=== PATIENT | male | born 1970 | race Caucasian/White ===

== ENCOUNTER 2017-05-11 00:51 | Inpatient (IN) | payer SELFPAY ==
[~2017-05-11] VITALS: Ht 182.9 cm; Wt 107.7 kg
[2017-05-11] VITALS (12 sets, daily range): BP systolic 127–172; BP diastolic 77–118
[2017-05-11] MEDS ORDERED: CONTRAST GIVEN MC PRN (01:30)
--- NOTE | 2017-05-11 01:57 | PHYS DOC ---
Past Medical History Past Medical History: Hypertension Past Surgical History: No Surgical History Alcohol Use: None Drug Use: Marijuana Adult General Chief Complaint Chief Complaint: GROIN PAIN HPI HPI Patient is a 47 year old M who presents with left groin hernia that is present for the past month however the past week it hasn't increased pain. Patient also states she does not just feel well in general and every time he coughs the pain in the left groin hurts. Patient denies any fevers. Patient denies any nausea/ vomiting/diarrhea. Patient denies any chest pain or shortness of breath. Patient has no other complaints. Pertinent exam findings: Reducible left inguinal hernia, abdomen soft nontender bowel sounds heard all 4 quadrants ED course: Patient was seen and evaluated CBC, CMP, lipase, UA, CT scan of the pelvis with contrast were ordered 0404: Patient was updated and reevaluated blood pressure is 203/130 and the patient is diaphoretic therefore will admit for hypertensive emergency abdominal pain Pertinent results: 0244: Sinus tach rate of 110 no STEMI CBC unremarkable CMP unremarkable CT scan of abdomen and pelvis IMPRESSION: 1. Intrarenal collecting system calculi identified in the right kidney. No hydronephrosis. 2. No evidence of left inguinal hernia. Tiny fat-containing right inguinal hernia. 3. 8 mm solid nodule right lower lobe of the lung. Follow-up nonemergent CT chest per Fleischner Society guidelines in 6-12 months. 4. Nonspecific mildly prominent retroperitoneal lymph nodes. MDM: After reviewing the chart, CC/HPI/PMH, physical exam, [lab results], [ radiological results], I do not put the patient has a intra-abdominal emergency warranting emergent surgical intervention. On reevaluation the patient is diaphoretic and states he just does not feel right however his blood pressures should be elevated therefore will admit for hypertensive emergency on a nicardipine drip to the ICU. Review of Systems Review of Systems GEN: Denies fevers, chills, sweats HEENT: Denies blurred vision, sore throat CV: Denies chest pain RESP: Denies shortness of air, cough GI: Left groin pain NEURO: Denies confusion, dizziness MSK: Denies weakness, joint pain/swelling Current Medications Current Medications Current Medications Medications (Trade) Dose Ordered Sig/Jose Start Time Stop Time Status Last Admin Dose Admin Clonidine HCl (Catapres) 0.2 mg 1X ONCE 6/11/17 02:00 05/11/17 02:01 DC 05/11/17 01:58 0.2 MG Info (Do NOT chart on this entry -- for MONITORING) 1 each PRN DAILY PRN 05/11/17 01:30 05/13/17 01:29 Iohexol (Omnipaque 300 Mg/ml) 75 ml 1X ONCE 05/11/17 02:00 05/11/17 02:01 DC Nicardipine HCl 50 mg/Sodium Chloride 270 ml @ 0 mls/hr CONT PRN 05/11/17 04:15 UNV Allergies Allergies Allergies Coded Allergies Type Severity Reaction Last Updated Verified No Known Drug Allergies 05/11/17 No Physical Exam Physical Exam GEN.: No apparent distress. Alert and oriented. HEENT: Head is normocephalic, atraumatic NECK: Supple. LUNGS: CTAB. HEART: RRR, S1, S2 present. Peripheral pulses intact ABDOMEN: Soft, nontender. Positive bowel sounds. Left reducible inguinal hernia, no signs of strength elation or incarceration EXTREMITIES: Without any cyanosis. NEUROLOGIC: Normal speech, normal tone PSYCHIATRIC: Normal affect, normal mood. SKIN: No ulcerations Current Patient Data Vital Signs Vital Signs Date Time Temp Pulse Resp B/P (MAP) Pulse Ox O2 Delivery O2 Flow Rate FiO2 05/11/17 03:45 102 204/131 (155) 96 Room Air 05/11/17 01:00 98.1 16 98.1 Lab Values Laboratory Tests Test 05/11/17 01:49 05/11/17 02:05 05/11/17 03:34 White Blood Count 8.5 x10^3/uL (4.0-11.0) Red Blood Count 5.37 x10^6/uL (4.30-5.70) Hemoglobin 16.5 g/dL (13.0-17.5) Hematocrit 48.1 % (39.0-53.0) Mean Corpuscular Volume 90 fL (79-100) Mean Corpuscular Hemoglobin 31 pg (25-35) Mean Corpuscular Hemoglobin Concent 34 g/dL (31-37) Red Cell Distribution Width 13.5 % (11.5-14.5) Platelet Count 236 x10^3/uL (140-400) Neutrophils (%) (Auto) 66 % (31-73) Lymphocytes (%) (Auto) 23 % (24-48) L Monocytes (%) (Auto) 7 % (0-9) Eosinophils (%) (Auto) 3 % (0-3) Basophils (%) (Auto) 1 % (0-3) Neutrophils # (Auto) 5.6 x10^3uL (1.8-7.7) Lymphocytes # (Auto) 2.0 x10^3/uL (1.0-4.8) Monocytes # (Auto) 0.6 x10^3/uL (0.0-1.1) Eosinophils # (Auto) 0.3 x10^3/uL (0.0-0.7) Basophils # (Auto) 0.1 x10^3/uL (0.0-0.2) Sodium Level 138 mmol/L (136-145) Potassium Level 3.9 mmol/L (3.5-5.1) Chloride Level 102 mmol/L (98-107) Carbon Dioxide Level 31 mmol/L (21-32) Anion Gap 5 (6-14) L Blood Urea Nitrogen 11 mg/dL (8-26) Creatinine 1.1 mg/dL (0.7-1.3) Estimated GFR (Cockcroft-Gault) 72.4 BUN/Creatinine Ratio 10 (6-20) Glucose Level 103 mg/dL (70-99) H Calcium Level 8.8 mg/dL (8.5-10.1) Total Bilirubin 0.5 mg/dL (0.2-1.0) Aspartate Amino Transferase (AST) 34 U/L (15-37) Alanine Aminotransferase (ALT) 37 U/L (16-63) Alkaline Phosphatase 73 U/L (46-116) Total Protein 7.6 g/dL (6.4-8.2) Albumin 3.8 g/dL (3.4-5.0) Albumin/Globulin Ratio 1.0 (1.0-1.7) Lipase 339 U/L (73-393) Lactic Acid Level 1.8 mmol/L (0.4-2.0) Urine Collection Type Unknown Urine Color Yellow Urine Clarity Clear Urine pH 6.0 Urine Specific [place] 1.015 Urine Protein >=300 mg/dL (NEG-TRACE) Urine Glucose (UA) Negative mg/dL (NEG) Urine Ketones (Stick) Negative mg/dL (NEG) Urine Blood Negative (NEG) Urine Nitrite Negative (NEG) Urine Bilirubin Negative (NEG) Urine Urobilinogen Dipstick 0.2 mg/dL (0.2 mg/dL) Urine Leukocyte Esterase Negative (NEG) Urine RBC Occ /HPF (0-2) Urine WBC Occ /HPF (0-4) Urine Squamous Epithelial Cells None /LPF Urine Bacteria 0 /HPF (0-FEW) Urine Mucus Slight /LPF Urine Sperm Present /HPF Laboratory Tests 05/11/17 01:49 Laboratory Tests 05/11/17 01:49 EKG EKG 0244: Sinus tach rate of 110 no STEMI[] Radiology/Procedures Radiology/Procedures CT the abdomen and pelvis: IMPRESSION: 1. Intrarenal collecting system calculi identified in the right kidney. No hydronephrosis. 2. No evidence of left inguinal hernia. Tiny fat-containing right inguinal hernia. 3. 8 mm solid nodule right lower lobe of the lung. Follow-up nonemergent CT chest per Fleischner Society guidelines in 6-12 months. 4. Nonspecific mildly prominent retroperitoneal lymph nodes.[] Course & Med Decision Making Course & Med Decision Making Pertinent Labs and Imaging studies reviewed. (See chart for details) Critical care time was 35 minutes exclusive of procedures. [] Dragon Disclaimer Dragon Disclaimer This electronic medical record was generated, in whole or in part, using a voice recognition dictation system. Departure Departure Impression: Primary Impression: Hypertensive emergency Additional Impression: Abdominal pain Disposition: 09 ADMITTED INPATIENT Admitting Physician: Obi Eason Condition: STABLE Problem Qualifiers Additional Impression: Abdominal pain Abdominal location: unspecified location Qualified Codes: R10.9 - Unspecified abdominal pain NINO BAUTISTA DO May 11, 2017 01:57
[2017-05-11 01:58] LABS: BASO # 0.1 x10^3/uL (0.0-0.2); BASO % 1 % (0-3); EOS % 3 % (0-3); HEMATOCRIT 48.1 % (39.0-53.0); HEMOGLOBIN 16.5 g/dL (13.0-17.5); LYMPH % 23 % (24-48); MEAN CORPUSCULAR HEMOGLOBIN 31 pg (25-35); MEAN CORPUSCULAR HGB CONC 34 g/dL (31-37); MEAN CORPUSCULAR VOLUME 90 fL (79-100); MONO % 7 % (0-9); NEUT % 66 % (31-73); PLATELET COUNT 236 x10^3/uL (140-400); RED BLOOD COUNT 5.37 x10^6/uL (4.30-5.70); RED CELL DISTRIBUTION WIDTH 13.5 % (11.5-14.5); WHITE BLOOD COUNT 8.5 x10^3/uL (4.0-11.0)
[2017-05-11] MEDS ORDERED: cloNIDine HCL 0.1 MG TABLET PO ONE (02:00)
[2017-05-11] MEDS ORDERED: IOHEXOL 300 MG/ML 75 ML VIAL IV ONE (02:00)
[2017-05-11 02:07] LABS: CALCIUM 8.8 mg/dL (8.5-10.1); CREATININE 1.1 mg/dL (0.7-1.3); GFR 72.4; POTASSIUM 3.9 mmol/L (3.5-5.1)
[2017-05-11 02:13] LABS: ALBUMIN 3.8 g/dL (3.4-5.0); TOTAL BILIRUBIN 0.5 mg/dL (0.2-1.0); TOTAL PROTEIN 7.6 g/dL (6.4-8.2)
--- NOTE | 2017-05-11 03:32 | RAD ---
Examination: CT of the abdomen and pelvis without contrast HISTORY: History of left inguinal hernia, pain COMPARISON: None TECHNIQUE: Axial CT images of the abdomen and pelvis were performed without contrast. Coronal and sagittal reformats were performed. Exposure: One or more of the following individualized dose reduction techniques were utilized for this examination: 1. Automated exposure control 2. Adjustment of the mA and/or kV according to patient size 3. Use of iterative reconstruction technique Findings: There is a 8 mm nodule identified in the right lower lobe of lung. Minimal right basilar lung atelectasis. No evidence of free air identified in the abdomen. The evaluation of the solid viscera limited lack of IV contrast. Evaluation of the bolus into the lack of oral contrast. The visualized liver, spleen, adrenals grossly appears unremarkable. The gallbladder is mildly distended. The stomach is mildly distended. The visualized pancreas grossly appears unremarkable. Small bowel is nondilated. The appendix is normal. Feces and gas in the colon. The urinary bladder is mildly distended. No evidence of left inguinal hernia defect. Tiny small fat-containing right inguinal hernia. The caliber of the aorta appears unremarkable. Few prominent retroperitoneal lymph nodes are identified with the largest measuring 2 cm. There is a 8 mm calcification identified in the right kidney. There is a small 4 mm calculus identified in the right kidney likely calculi. No evidence of hydronephrosis. No evidence of lytic bony destructive lesion. Mild degenerative changes lumbar spine. IMPRESSION: 1. Intrarenal collecting system calculi identified in the right kidney. No hydronephrosis. 2. No evidence of left inguinal hernia. Tiny fat-containing right inguinal hernia. 3. 8 mm solid nodule right lower lobe of the lung. Follow-up nonemergent CT chest per Fleischner Society guidelines in 6-12 months. 4. Nonspecific mildly prominent retroperitoneal lymph nodes. Electronically signed by: Florencio Pizano MD (05/11/2017 3:29 AM)
[2017-05-11 03:43] LABS: BILIRUBIN,URINE NEGATIVE (NEG); GLUCOSE,URINE NEGATIVE (NEG); NITRITE,URINE NEGATIVE (NEG); PROTEIN,URINE >=300 mg/dL (NEG-TRACE); UROBILINOGEN,URINE 0.2 mg/dL (0.2 mg/dL)
--- NOTE | 2017-05-11 03:43 | ACF ---
Admission Forms Criteria HYPERTENSION Clinical Indications for Admission to Inpatient Care ( Place "X" for any and all applicable criteria): Admission is indicated for 1 or more of the following(1)(2)(3)(4)(5)(6)(7)(8)(9) (10): [ ]I. Hypertensive emergency, with evidence of acute and progressing target organ disease as indicated by 1 or more of the following: [ ]a) Hypertensive encephalopathy (eg, confusion, altered mental status) [ ]b) Cerebral infarction [ ]c) Intracranial hemorrhage [ ]d) Myocardial ischemia or infarction [ ]e) Heart failure (eg. Pulmonary edema) [ ]f) Aortic dissection [ ]g) Increased creatinine (new) with reduction of more than 50% in estimated glomerular filtration rate from baseline [ ]h) Seizure [ ]i) Papilledema [ ]j) Retinal hemorrhage [ ]k) Microangiopathic hemolytic anemia [ ]l) Other significant finding secondary to hypertension [ ]II. Adrenergic or sympathomimetic crisis (eg, severe hypertension due to pheochromocytoma crisis, cocaine or amphetamine intoxication, or clonidine withdrawal) [X]III. Severe hypertension (SBP greater than 180 mmHg or DBP greater than 110 mmHg or greater than the 95th percentile for age, gender, and height in pediatric patients) that cannot be controlled (eg, to SBP less than 160 mmHg and DBP less than 100 mmHg in adults) by treatment with oral medication in emergency department or observation care Extended stay beyond goal length of stay may be needed for(11)(12)(13): [ ]a) Persistent hypertensive encephalopathy [ ]b) Continuation of pulmonary edema [ ]c) Recurring or persistent severe hypertension [ ]d) Target organ damage (eg, angina, stroke, aortic dissection) The original [employer] content created by [employer] has been revised. The portions of the content which have been revised are identified through the use of italic text, and [email or web address] has neither reviewed nor approved the modified material. All other unmodified content is copyright [employer]. Please see references footnoted in the original [employer] edition 2014 Admission Criteria Met?: Yes ALCIDES TAYLOR May 11, 2017 03:43
[2017-05-11 03:54] LABS: BACTERIA,URINE 0 /HPF (0-FEW); RBC,URINE OCC /HPF (0-2); WBC,URINE OCC /HPF (0-4)
[2017-05-11 03:55] LABS: SPERM,URINE PRESENT /HPF
[2017-05-11] MEDS ORDERED: ASPIRIN CHEWABLE 81 MG TABLET. PO ONE (05:00)
[2017-05-11] MEDS ORDERED: IV NORMAL SALINE 1000ML BAG 1,000 ML IV ONE (05:00)
[2017-05-11] MEDS ORDERED: MORPHINE SULFATE 4 MG/ML DISP.SYRIN. IV PRN (06:00)
[2017-05-11] MEDS ORDERED: ACETAMINOPHEN 325 MG TABLET. PO PRN (07:30)
[2017-05-11] MEDS ORDERED: ALBUTEROL SULFATE 2.5 MG/3 ML NEBU. NEB PRN (07:30)
[2017-05-11] MEDS ORDERED: ONDANSETRON PF 4 MG/2 ML VIAL. IV PRN (07:30)
--- NOTE | 2017-05-11 07:55 | RAD ---
Indication shortness of breath. A single view of the chest was obtained no prior imaging of the chest is available. There is mild generalized cardiomegaly. There is no gross congestive heart failure. No consolidated pneumonia is seen. Significant pleural fluid is not present and there is no pneumothorax. The visualized bony structures appear grossly intact. IMPRESSION: Mild cardiomegaly. No focal process seen in the chest
[2017-05-11] MEDS: METOPROLOL TART IMMED RELEASE 25 MG TABLET. PO SCH ×2 (08:26→20:52)
--- NOTE | 2017-05-11 09:52 | PDOC1 ---
History and Physical Current Problem List Problem List Problems Medical Problems: (1) Abdominal pain Status: Acute (2) Hypertensive emergency Status: Acute Current Medications Current Medications Current Medications Medications (Trade) Dose Ordered Sig/Jose Start Time Stop Time Status Last Admin Dose Admin Acetaminophen (Tylenol) 325 mg PRN Q6HRS PRN 05/11/17 07:30 Acetaminophen/ Hydrocodone Bitart (Lortab 5/325) 1 tab PRN Q6HRS PRN 05/11/17 07:30 Albuterol Sulfate (Ventolin Neb Soln) 2.5 mg PRN Q4HRS PRN 05/11/17 07:30 Aspirin (Children'S Aspirin) 324 mg 1X ONCE 05/11/17 05:00 05/11/17 05:01 DC 05/11/17 04:46 324 MG Clonidine HCl (Catapres) 0.2 mg 1X ONCE 05/11/17 02:00 05/11/17 02:01 DC 05/11/17 01:58 0.2 MG Hydralazine HCl (Apresoline) 10 mg PRN Q4HRS PRN 05/11/17 07:30 Info (Do NOT chart on this entry -- for MONITORING) 1 each PRN DAILY PRN 05/11/17 01:30 05/13/17 01:29 Iohexol (Omnipaque 300 Mg/ml) 75 ml 1X ONCE 05/11/17 02:00 05/11/17 02:01 DC Metoprolol Tartrate (Lopressor) 25 mg BID 05/11/17 09:00 05/11/17 08:26 25 MG Morphine Sulfate 4 mg PRN Q2HR PRN 05/11/17 06:00 Nicardipine HCl 50 mg/Sodium Chloride 270 ml @ 0 mls/hr CONT PRN 05/11/17 04:15 05/11/17 04:22 12.5 MLS/HR Ondansetron HCl (Zofran) 4 mg PRN Q8HRS PRN 05/11/17 07:30 Sodium Chloride 1,000 ml @ 1,000 mls/hr 1X ONCE 05/11/17 05:00 05/11/17 05:59 DC 05/11/17 04:50 1,000 MLS/HR Allergies Allergies Allergies Coded Allergies Type Severity Reaction Last Updated Verified No Known Drug Allergies 05/11/17 No ROS Review of System CONSTITUTIONAL: No fever or chills EYES: No recent changes SKIN: No rash or itching CARDIOVASCULAR: No chest pain, syncope, palpitations, or edema RESPIRATORY: No SOB or cough GASTROINTESTINAL: abdominal pain NEUROLOGICAL: No headaches or weakness ENDOCRINE: No cold or heat intolerance GENITOURINARY: No urgency or frequency of urination MUSCULOSKELETAL: No back pain or joint pain LYMPHATICS: No enlarged lymph nodes PSYCHIATRIC: No anxiety or depression Physical Exam Physical Exam GEN.: No apparent distress. Alert and oriented. sleepy, didn't sleep last night. HEENT: Head is normocephalic, atraumatic NECK: Supple. no JVD LUNGS: Clear to auscultation. normal airflow. HEART: RRR, S1, S2 present. Peripheral pulses intact ABDOMEN: Soft, nontender. Positive bowel sounds. EXTREMITIES: Without any cyanosis. NEUROLOGIC: Normal speech, normal tone PSYCHIATRIC: Normal affect, normal mood. SKIN: No ulcerations Vitals Vitals Vital Signs Date Time Temp Pulse Resp B/P (MAP) Pulse Ox O2 Delivery O2 Flow Rate FiO2 05/11/17 09:00 76 18 127/78 (94) 95 Room Air 05/11/17 07:00 98.4 98.4 Labs Labs Laboratory Tests Test 05/11/17 01:49 05/11/17 02:05 05/11/17 03:34 White Blood Count 8.5 x10^3/uL (4.0-11.0) Red Blood Count 5.37 x10^6/uL (4.30-5.70) Hemoglobin 16.5 g/dL (13.0-17.5) Hematocrit 48.1 % (39.0-53.0) Mean Corpuscular Volume 90 fL (79-100) Mean Corpuscular Hemoglobin 31 pg (25-35) Mean Corpuscular Hemoglobin Concent 34 g/dL (31-37) Red Cell Distribution Width 13.5 % (11.5-14.5) Platelet Count 236 x10^3/uL (140-400) Neutrophils (%) (Auto) 66 % (31-73) Lymphocytes (%) (Auto) 23 % (24-48) Monocytes (%) (Auto) 7 % (0-9) Eosinophils (%) (Auto) 3 % (0-3) Basophils (%) (Auto) 1 % (0-3) Neutrophils # (Auto) 5.6 x10^3uL (1.8-7.7) Lymphocytes # (Auto) 2.0 x10^3/uL (1.0-4.8) Monocytes # (Auto) 0.6 x10^3/uL (0.0-1.1) Eosinophils # (Auto) 0.3 x10^3/uL (0.0-0.7) Basophils # (Auto) 0.1 x10^3/uL (0.0-0.2) Sodium Level 138 mmol/L (136-145) Potassium Level 3.9 mmol/L (3.5-5.1) Chloride Level 102 mmol/L (98-107) Carbon Dioxide Level 31 mmol/L (21-32) Anion Gap 5 (6-14) Blood Urea Nitrogen 11 mg/dL (8-26) Creatinine 1.1 mg/dL (0.7-1.3) Estimated GFR (Cockcroft-Gault) 72.4 BUN/Creatinine Ratio 10 (6-20) Glucose Level 103 mg/dL (70-99) Calcium Level 8.8 mg/dL (8.5-10.1) Total Bilirubin 0.5 mg/dL (0.2-1.0) Aspartate Amino Transf (AST/SGOT) 34 U/L (15-37) Alanine Aminotransferase (ALT/SGPT) 37 U/L (16-63) Alkaline Phosphatase 73 U/L (46-116) Troponin I Quantitative 0.102 ng/mL (0.000-0.055) Total Protein 7.6 g/dL (6.4-8.2) Albumin 3.8 g/dL (3.4-5.0) Albumin/Globulin Ratio 1.0 (1.0-1.7) Lipase 339 U/L (73-393) Lactic Acid Level 1.8 mmol/L (0.4-2.0) Urine Collection Type Unknown Urine Color Yellow Urine Clarity Clear Urine pH 6.0 Urine Specific [place] 1.015 Urine Protein >=300 mg/dL (NEG-TRACE) Urine Glucose (UA) Negative mg/dL (NEG) Urine Ketones (Stick) Negative mg/dL (NEG) Urine Blood Negative (NEG) Urine Nitrite Negative (NEG) Urine Bilirubin Negative (NEG) Urine Urobilinogen Dipstick 0.2 mg/dL (0.2 mg/dL) Urine Leukocyte Esterase Negative (NEG) Urine RBC Occ /HPF (0-2) Urine WBC Occ /HPF (0-4) Urine Squamous Epithelial Cells None /LPF Urine Bacteria 0 /HPF (0-FEW) Urine Mucus Slight /LPF Urine Sperm Present /HPF Laboratory Tests Test 05/11/17 01:49 05/11/17 02:05 05/11/17 03:34 White Blood Count 8.5 x10^3/uL (4.0-11.0) Red Blood Count 5.37 x10^6/uL (4.30-5.70) Hemoglobin 16.5 g/dL (13.0-17.5) Hematocrit 48.1 % (39.0-53.0) Mean Corpuscular Volume 90 fL (79-100) Mean Corpuscular Hemoglobin 31 pg (25-35) Mean Corpuscular Hemoglobin Concent 34 g/dL (31-37) Red Cell Distribution Width 13.5 % (11.5-14.5) Platelet Count 236 x10^3/uL (140-400) Neutrophils (%) (Auto) 66 % (31-73) Lymphocytes (%) (Auto) 23 % (24-48) Monocytes (%) (Auto) 7 % (0-9) Eosinophils (%) (Auto) 3 % (0-3) Basophils (%) (Auto) 1 % (0-3) Neutrophils # (Auto) 5.6 x10^3uL (1.8-7.7) Lymphocytes # (Auto) 2.0 x10^3/uL (1.0-4.8) Monocytes # (Auto) 0.6 x10^3/uL (0.0-1.1) Eosinophils # (Auto) 0.3 x10^3/uL (0.0-0.7) Basophils # (Auto) 0.1 x10^3/uL (0.0-0.2) Sodium Level 138 mmol/L (136-145) Potassium Level 3.9 mmol/L (3.5-5.1) Chloride Level 102 mmol/L (98-107) Carbon Dioxide Level 31 mmol/L (21-32) Anion Gap 5 (6-14) Blood Urea Nitrogen 11 mg/dL (8-26) Creatinine 1.1 mg/dL (0.7-1.3) Estimated GFR (Cockcroft-Gault) 72.4 BUN/Creatinine Ratio 10 (6-20) Glucose Level 103 mg/dL (70-99) Calcium Level 8.8 mg/dL (8.5-10.1) Total Bilirubin 0.5 mg/dL (0.2-1.0) Aspartate Amino Transf (AST/SGOT) 34 U/L (15-37) Alanine Aminotransferase (ALT/SGPT) 37 U/L (16-63) Alkaline Phosphatase 73 U/L (46-116) Troponin I Quantitative 0.102 ng/mL (0.000-0.055) Total Protein 7.6 g/dL (6.4-8.2) Albumin 3.8 g/dL (3.4-5.0) Albumin/Globulin Ratio 1.0 (1.0-1.7) Lipase 339 U/L (73-393) Lactic Acid Level 1.8 mmol/L (0.4-2.0) Urine Collection Type Unknown Urine Color Yellow Urine Clarity Clear Urine pH 6.0 Urine Specific [place] 1.015 Urine Protein >=300 mg/dL (NEG-TRACE) Urine Glucose (UA) Negative mg/dL (NEG) Urine Ketones (Stick) Negative mg/dL (NEG) Urine Blood Negative (NEG) Urine Nitrite Negative (NEG) Urine Bilirubin Negative (NEG) Urine Urobilinogen Dipstick 0.2 mg/dL (0.2 mg/dL) Urine Leukocyte Esterase Negative (NEG) Urine RBC Occ /HPF (0-2) Urine WBC Occ /HPF (0-4) Urine Squamous Epithelial Cells None /LPF Urine Bacteria 0 /HPF (0-FEW) Urine Mucus Slight /LPF Urine Sperm Present /HPF VTE Prophylaxis Ordered VTE Prophylaxis Devices: Yes VTE Pharmacological Prophylaxi: No BELKIS DIAMOND MD May 11, 2017 09:52
[2017-05-11] MEDS ORDERED: hydroCHLOROthiazide 12.5 MG CAPSULE PO SCH (10:00)
--- NOTE | 2017-05-11 11:36 | RAD ---
Indication uncontrolled hypertension. Ultrasound was performed targeted to the renal vasculature. Grayscale color and Doppler imaging was performed. The visualized abdominal aorta appear normal. Only the proximal abdominal aorta was seen. The mid and distal abdominal aorta were obscured by gas. Right kidney measures 14.2 x 5.8 cm and the left 13.6 x 5.4 cm. The kidneys appear morphologically normal. The measured velocities associated with the main renal arteries bilaterally appear normal. Ratio values relative to the aorta are also normal. Resistive indices are normal. The renal veins appeared patent. The urinary bladder was incompletely distended but grossly normal IMPRESSION: Normal morphologic appearance of the kidneys. No evidence of high-grade renal artery stenosis seen associated with the main renal arteries bilaterally.
--- NOTE | 2017-05-11 12:38 | EKG ---
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
--- NOTE | 2017-05-11 12:38 | EKG ---
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
--- NOTE | 2017-05-11 14:23 | PDOC2 ---
CONSULT Date of Consult Date of Consult DATE: 05/11/17 TIME: 14:17 Reason for Consult Reason for Consult: Accelerated hypertension. Referring Physician Referring Physician: Dr. Eason Identification/Chief Complaint Chief Complaint Left groin pain Source Source: Patient History of Present Illness Reason for Visit: The patient is a 47-year-old male was admitted through the emergency room for left groin pain. Initial workup showed a CT abdominal scan that showed no left inguinal hernia and no acute changes. As the patient was being evaluated for his abdominal pain he was FOUND to be significantly hypertensive with a blood pressure systolic of 204 or greater. Patient also appeared diaphoretic. EKG showed a sinus tachycardia with no acute ST segment changes. Troponin initially was minimally elevated at 0.102. Patient was treated with IV medications for his hypertension overnight and today is feeling much better. His pain has significantly improved. Systolic pressure is now 150. He denies chest pain, increasing shortness of breath. His diaphoresis has resolved. Past Medical History Cardiovascular: HTN Past Surgical History Past Surgical History: No pertinent history Family History Family History: Hypertension Social History No Current Problem List Problem List Problems Medical Problems: (1) Abdominal pain Status: Acute (2) Hypertensive emergency Status: Acute Current Medications Current Medications Current Medications Iohexol (Omnipaque 300 Mg/ml) 75 ml 1X ONCE IV ; Start 05/11/17 at 02:00; Stop 05/11/17 at 02:01; Status DC Info (Do NOT chart on this entry -- for MONITORING) 1 each PRN DAILY PRN MC SEE COMMENTS; Start 05/11/17 at 01:30; Stop 05/13/17 at 01:29 Clonidine HCl (Catapres) 0.2 mg 1X ONCE PO Last administered on 05/11/17 01: 58; Start 05/11/17 at 02:00; Stop 05/11/17 at 02:01; Status DC Nicardipine HCl 50 mg/Sodium Chloride 270 ml @ 0 mls/hr CONT PRN IV SEE I/O RECORD Last administered on 05/11/17 04:22; Start 05/11/17 at 04:15 Aspirin (Children'S Aspirin) 324 mg 1X ONCE PO Last administered on 05/11/17 04:46; Start 05/11/17 at 05:00; Stop 05/11/17 at 05:01; Status DC Sodium Chloride 1,000 ml @ 1,000 mls/hr 1X ONCE IV Last administered on 04:50; Start 05/11/17 at 05:00; Stop 05/11/17 at 05:59; Status DC Morphine Sulfate 4 mg PRN Q2HR PRN IV SEVERE PAIN; Start 05/11/17 at 06:00 Metoprolol Tartrate (Lopressor) 25 mg BID PO Last administered on 05/11/17 08: 26; Start 05/11/17 at 09:00 Acetaminophen (Tylenol) 325 mg PRN Q6HRS PRN PO MILD PAIN / TEMP Last administered on 05/11/17 11:23; Start 05/11/17 at 07:30 Acetaminophen/ Hydrocodone Bitart (Lortab 5/325) 1 tab PRN Q6HRS PRN PO MODERATE TO SEVERE PAIN; Start 05/11/17 at 07:30 Hydralazine HCl (Apresoline) 10 mg PRN Q4HRS PRN IVP ELEVATED BP, SEE COMMENTS ; Start 05/11/17 at 07:30 Ondansetron HCl (Zofran) 4 mg PRN Q8HRS PRN IV NAUSEA/VOMITING; Start 05/11/17 at 07:30 Albuterol Sulfate (Ventolin Neb Soln) 2.5 mg PRN Q4HRS PRN NEB SHORTNESS OF BREATH; Start 05/11/17 at 07:30 Hydrochlorothiazide (Microzide) 12.5 mg DAILY PO Last administered on 09:55; Start 05/11/17 at 10:00 Allergies Allergies: Coded Allergies: No Known Drug Allergies (Unverified , 05/11/17) ROS Genitourinary: YES Other (groin pain) Physical Exam General: Cooperative, No acute distress Lungs: Clear to auscultation Heart: Regular rate Abdomen: Other (slight tenderness in the lower abdomen) Vitals VITALS Vital Signs Date Time Temp Pulse Resp B/P (MAP) Pulse Ox O2 Delivery O2 Flow Rate FiO2 05/11/17 13:01 98 Nasal Cannula 05/11/17 11:45 97.3 77 20 138/95 (109) 97.3 Labs Labs Laboratory Tests Test 05/11/17 01:49 05/11/17 02:05 05/11/17 03:34 05/11/17 12:45 White Blood Count 8.5 x10^3/uL (4.0-11.0) Red Blood Count 5.37 x10^6/uL (4.30-5.70) Hemoglobin 16.5 g/dL (13.0-17.5) Hematocrit 48.1 % (39.0-53.0) Mean Corpuscular Volume 90 fL (79-100) Mean Corpuscular Hemoglobin 31 pg (25-35) Mean Corpuscular Hemoglobin Concent 34 g/dL (31-37) Red Cell Distribution Width 13.5 % (11.5-14.5) Platelet Count 236 x10^3/uL (140-400) Neutrophils (%) (Auto) 66 % (31-73) Lymphocytes (%) (Auto) 23 % (24-48) Monocytes (%) (Auto) 7 % (0-9) Eosinophils (%) (Auto) 3 % (0-3) Basophils (%) (Auto) 1 % (0-3) Neutrophils # (Auto) 5.6 x10^3uL (1.8-7.7) Lymphocytes # (Auto) 2.0 x10^3/uL (1.0-4.8) Monocytes # (Auto) 0.6 x10^3/uL (0.0-1.1) Eosinophils # (Auto) 0.3 x10^3/uL (0.0-0.7) Basophils # (Auto) 0.1 x10^3/uL (0.0-0.2) Sodium Level 138 mmol/L (136-145) Potassium Level 3.9 mmol/L (3.5-5.1) Chloride Level 102 mmol/L (98-107) Carbon Dioxide Level 31 mmol/L (21-32) Anion Gap 5 (6-14) Blood Urea Nitrogen 11 mg/dL (8-26) Creatinine 1.1 mg/dL (0.7-1.3) Estimated GFR (Cockcroft-Gault) 72.4 BUN/Creatinine Ratio 10 (6-20) Glucose Level 103 mg/dL (70-99) Calcium Level 8.8 mg/dL (8.5-10.1) Total Bilirubin 0.5 mg/dL (0.2-1.0) Aspartate Amino Transf (AST/SGOT) 34 U/L (15-37) Alanine Aminotransferase (ALT/SGPT) 37 U/L (16-63) Alkaline Phosphatase 73 U/L (46-116) Troponin I Quantitative 0.102 ng/mL (0.000-0.055) 0.096 ng/mL (0.000-0.055) Total Protein 7.6 g/dL (6.4-8.2) Albumin 3.8 g/dL (3.4-5.0) Albumin/Globulin Ratio 1.0 (1.0-1.7) Lipase 339 U/L (73-393) Lactic Acid Level 1.8 mmol/L (0.4-2.0) Urine Collection Type Unknown Urine Color Yellow Urine Clarity Clear Urine pH 6.0 Urine Specific [place] 1.015 Urine Protein >=300 mg/dL (NEG-TRACE) Urine Glucose (UA) Negative mg/dL (NEG) Urine Ketones (Stick) Negative mg/dL (NEG) Urine Blood Negative (NEG) Urine Nitrite Negative (NEG) Urine Bilirubin Negative (NEG) Urine Urobilinogen Dipstick 0.2 mg/dL (0.2 mg/dL) Urine Leukocyte Esterase Negative (NEG) Urine RBC Occ /HPF (0-2) Urine WBC Occ /HPF (0-4) Urine Squamous Epithelial Cells None /LPF Urine Bacteria 0 /HPF (0-FEW) Urine Mucus Slight /LPF Urine Sperm Present /HPF Laboratory Tests Test 05/11/17 01:49 05/11/17 02:05 05/11/17 03:34 05/11/17 12:45 White Blood Count 8.5 x10^3/uL (4.0-11.0) Red Blood Count 5.37 x10^6/uL (4.30-5.70) Hemoglobin 16.5 g/dL (13.0-17.5) Hematocrit 48.1 % (39.0-53.0) Mean Corpuscular Volume 90 fL (79-100) Mean Corpuscular Hemoglobin 31 pg (25-35) Mean Corpuscular Hemoglobin Concent 34 g/dL (31-37) Red Cell Distribution Width 13.5 % (11.5-14.5) Platelet Count 236 x10^3/uL (140-400) Neutrophils (%) (Auto) 66 % (31-73) Lymphocytes (%) (Auto) 23 % (24-48) Monocytes (%) (Auto) 7 % (0-9) Eosinophils (%) (Auto) 3 % (0-3) Basophils (%) (Auto) 1 % (0-3) Neutrophils # (Auto) 5.6 x10^3uL (1.8-7.7) Lymphocytes # (Auto) 2.0 x10^3/uL (1.0-4.8) Monocytes # (Auto) 0.6 x10^3/uL (0.0-1.1) Eosinophils # (Auto) 0.3 x10^3/uL (0.0-0.7) Basophils # (Auto) 0.1 x10^3/uL (0.0-0.2) Sodium Level 138 mmol/L (136-145) Potassium Level 3.9 mmol/L (3.5-5.1) Chloride Level 102 mmol/L (98-107) Carbon Dioxide Level 31 mmol/L (21-32) Anion Gap 5 (6-14) Blood Urea Nitrogen 11 mg/dL (8-26) Creatinine 1.1 mg/dL (0.7-1.3) Estimated GFR (Cockcroft-Gault) 72.4 BUN/Creatinine Ratio 10 (6-20) Glucose Level 103 mg/dL (70-99) Calcium Level 8.8 mg/dL (8.5-10.1) Total Bilirubin 0.5 mg/dL (0.2-1.0) Aspartate Amino Transf (AST/SGOT) 34 U/L (15-37) Alanine Aminotransferase (ALT/SGPT) 37 U/L (16-63) Alkaline Phosphatase 73 U/L (46-116) Troponin I Quantitative 0.102 ng/mL (0.000-0.055) 0.096 ng/mL (0.000-0.055) Total Protein 7.6 g/dL (6.4-8.2) Albumin 3.8 g/dL (3.4-5.0) Albumin/Globulin Ratio 1.0 (1.0-1.7) Lipase 339 U/L (73-393) Lactic Acid Level 1.8 mmol/L (0.4-2.0) Urine Collection Type Unknown Urine Color Yellow Urine Clarity Clear Urine pH 6.0 Urine Specific [place] 1.015 Urine Protein >=300 mg/dL (NEG-TRACE) Urine Glucose (UA) Negative mg/dL (NEG) Urine Ketones (Stick) Negative mg/dL (NEG) Urine Blood Negative (NEG) Urine Nitrite Negative (NEG) Urine Bilirubin Negative (NEG) Urine Urobilinogen Dipstick 0.2 mg/dL (0.2 mg/dL) Urine Leukocyte Esterase Negative (NEG) Urine RBC Occ /HPF (0-2) Urine WBC Occ /HPF (0-4) Urine Squamous Epithelial Cells None /LPF Urine Bacteria 0 /HPF (0-FEW) Urine Mucus Slight /LPF Urine Sperm Present /HPF Images Images Chest x-ray with mild cardiomegaly. Renal ultrasound with no significant stenosis. Assessment/Plan Assessment/Plan 1. Groin and abdominal pain. Significantly improved. No acute changes on CT scans. Workup as above. 2. Accelerated hypertension. Significantly improved today. We will adjust oral medications. 3. Minimally elevated troponin at 0.102. Most consistent with demand ischemia from the patient's accelerated hypertension. At this time a complete rule out protocol. We'll check an echocardiogram today. If the patient is feeling better proceed with MPI testing tomorrow. Thank you for allowing us to participate in the care of the patient. ADRIANNE ARZATE MD May 11, 2017 14:23
[2017-05-11] MEDS: POLYETHYLENE GLYCOL 3350 17 GM PACKET. PO SCH (16:00)
[2017-05-11] MEDS: NICOTINE 21MG PATCH. TD SCH (16:12)
--- NOTE | 2017-05-11 17:17 | CARD ---
APPROVED REPORT EXAM: Two-dimensional and M-mode echocardiogram with Doppler and color Doppler. Other Information Quality : AverageHR: 76bpm INDICATION HTN Urgency 2D DIMENSIONS Left Atrium(2D)6.0 (1.6-4.0cm)IVSd1.1 (0.7-1.1cm) LVDd5.2 (3.9-5.9cm)LVOT Diameter2.6 (1.8-2.4cm) PWd1.1 (0.7-1.1cm)LVDs3.8 (2.5-4.0cm) FS (%) 26.4 %SV65.4 ml LVEF(%)51.3 (>50%) M-Mode DIMENSIONS Aortic Cusp Exc2.02 (1.5-2.0cm) Aortic Valve AoV Peak Aftab.93.1cm/sAoV VTI15.4cm AO Peak GR.3.5mmHgLVOT VTI 10.63cm AO Mean GR.3mmHg Mitral Valve MV E Slusvabf88.2cm/sMV E Peak Gr.2mmHg MV DECEL [id number] A [place]29.6cm/s MV E Mean Gr.1mmHgE/A Ratio2.6 MV A [id number] TDI Lateral E' P. V8.38cm/sMedial E' P. V4.00cm/s E/Lateral E'9.6E/Medial E'20.0 Pulmonary Valve PV Peak Kjdrwtjh08.6cm/s Tricuspid Valve TR P. Movgwirh535bx/sRAP [id number] TR Peak Gr.12goPoYZDQ54ccRa Pulmonary Vein S1 Qmapliph95.7cm/sS2 Lvngfxqz37.52cm/s D2 Nsnniwfp62.5cm/s LEFT VENTRICLE The left ventricle is normal size. There is borderline concentric left ventricular hypertrophy. The l eft ventricular systolic function is normal and the ejection fraction is mildly decreased on a global basis. LV ejection fraction is estimated at 45%. There is normal LV segmental wall motion. No left v entricle thrombus noted on this study. There is no ventricular septal defect visualized. There is no left ventricular aneurysm. There is no mass noted in the left ventricle. RIGHT VENTRICLE The right ventricle is normal size. There is normal right ventricular wall thickness. The right ventr icular systolic function is normal. ATRIA The left atrium is mildly dilated. The right atrium size is normal. The interatrial septum is intact with no evidence for an atrial septal defect or patent foramen ovale as noted on 2-D or Doppler imagi ng. AORTIC VALVE The aortic valve is normal in structure and function. Doppler and Color Flow revealed trace aortic re gurgitation. There is no significant aortic valvular stenosis. There is no aortic valvular vegetation . MITRAL VALVE The mitral valve is normal in structure and function. There is no evidence of mitral valve prolapse. There is no mitral valve stenosis. Doppler and Color-flow revealed trace mitral regurgitation. TRICUSPID VALVE The tricuspid valve is normal in structure and function. Doppler and Color Flow revealed mild to mode rate tricuspid regurgitation. There is no tricuspid valve prolapse or vegetation. There is no tricusp id valve stenosis. PULMONIC VALVE The pulmonary valve is normal in structure and function. Doppler and Color Flow revealed mild to mode rate pulmonic valvular regurgitation. There is no pulmonic valvular stenosis. GREAT VESSELS The aortic root is normal in size. The IVC is normal in size and collapses >50% with inspiration. PERICARDIAL EFFUSION There is no pleural effusion. There is no evidence of significant pericardial effusion. Critical Notification Critical Value: No <Conclusion> The left ventricle is normal size. The left ventricular systolic function is normal and the ejection fraction is mildly decreased on a g lobal basis. LV ejection fraction is estimated at 45%. There is borderline concentric left ventricular hypertrophy. There is no significant aortic valvular stenosis. Doppler and Color Flow revealed trace aortic regurgitation. Doppler and Color-flow revealed trace mitral regurgitation. Doppler and Color Flow revealed mild to moderate tricuspid regurgitation.
--- NOTE | 2017-05-11 22:51 | HP ---
ADMIT DATE: 05/11/2017 CHIEF COMPLAINT: Abdominal pain. HISTORY OF PRESENT ILLNESS: A 47-year-old, [place] male patient with prior history of hypertension, not taking any medications, presented to the ER with complaints of abdominal pain. He was evaluated for incarcerated hernia and he had CT of the abdomen that showed no acute process. He has reducible inguinal hernia, but no intestinal obstruction was seen. However, during his arrival, the patient had blood pressure systolic more than 203 with diastolic 130 with tachycardia. The patient was diaphoretic and requiring nicardipine drip for controlling his blood pressure. Also he had mild elevation of troponins and patient was admitted to critical care unit for blood pressure control. This morning, the patient denies any symptoms, resting comfortably, his blood pressure has been down to 150 systolic. PAST MEDICAL HISTORY: Hypertension. PAST SURGICAL HISTORY: None. FAMILY HISTORY: Hypertension. PERSONAL HISTORY: No smoking, no alcohol, no drug abuse; occasionally takes marijuana. ALLERGIES: NKDA. REVIEW OF SYSTEMS: CONSTITUTIONAL: No fever or chills. EYES: No recent vision changes. SKIN: No rash or itching. CARDIOVASCULAR: No chest pain, syncope, palpitations or edema. RESPIRATORY: No shortness of breath, cough. GASTROINTESTINAL: No nausea, vomiting, diarrhea or abdominal pain. NEUROLOGICAL: No headache, paralysis. ENDOCRINOLOGIC: No cold or heat intolerance. GENITOURINARY: No burning with urination, no urgency. MUSCULOSKELETAL: No back pain or joint pain. LYMPHATICS: No enlarged nodes. PSYCHIATRIC: No anxiety or depression. PHYSICAL EXAM: GENERAL: No apparent distress. HEENT: Head normocephalic, atraumatic. NECK: Supple. LUNGS: Clear to auscultation. HEART: Regular rate and rhythm; S1, S2 present; pulses intact. ABDOMEN: Soft and positive bowel sounds. EXTREMITIES: No cyanosis or edema. NEUROLOGIC: Normal speech and normal tone; alert and oriented. PSYCHIATRIC: Normal affect, normal mood. SKIN: No ulceration. LABORATORY FINDINGS: CBC within normal limits. Chemistry, sodium is 138, potassium 3.9, chloride is 102, carbon dioxide 51, gap is 5, creatinine 1.1, troponin is 0.10 and second set 0.96, lipase 339. Urine protein is more than 300, ketones negative, nitrites negative, leukocyte esterase is negative. IMAGING STUDIES: Chest x-ray and abdomen and pelvis CT, no acute process seen. EKG, not able to obtain the images. As per the ER, sinus tachycardia without ST-T wave changes. ASSESSMENT: 1. Hypertensive emergency present on admission. 2. Mild elevation of troponins. 3. Incidental finding of 8-mm solid nodule in the right upper lobe of the lungs, needs outpatient followup. PLAN: 1. Currently, the patient's blood pressure has been controlled with nicardipine drip and we will put him on metoprolol and hydrochlorothiazide and change medications according to his blood pressure. 2. Cardiology has been consulted for mild elevation of troponins which can be due to uncontrolled hypertension. The patient has been chest pain free and never been complained of chest pain. 3. Renal ultrasound has been ordered. 4. The patient needs outpatient followup with primary care doctor for repeat CAT scan in 6-12 months. 5. Nicotine patch. 6. CBC, BMP in a.m. Renal ultrasound. 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 BELKIS DIAMOND MD DR: REESE/brittany JOB#: [id number] / [id number] ESTEFANY
[2017-05-11] MEDS: hydrALAZINE 20 MG/ML VIAL. IVP PRN (23:14)
[2017-05-12] VITALS (8 sets, daily range): BP systolic 141–186; BP diastolic 88–111
[2017-05-12] MEDS: hydrALAZINE 20 MG/ML VIAL. IVP PRN ×2 (03:15→19:37)
[2017-05-12 03:58] LABS: BASO # 0.1 x10^3/uL (0.0-0.2); BASO % 1 % (0-3); EOS % 5 % (0-3); HEMATOCRIT 54.2 % (39.0-53.0); LYMPH # 3.2 x10^3/uL (1.0-4.8); LYMPH % 32 % (24-48); MEAN CORPUSCULAR HEMOGLOBIN 30 pg (25-35); MEAN CORPUSCULAR HGB CONC 33 g/dL (31-37); MEAN CORPUSCULAR VOLUME 91 fL (79-100); MONO % 6 % (0-9); NEUT % 55 % (31-73); PLATELET COUNT 220 x10^3/uL (140-400); RED BLOOD COUNT 5.94 x10^6/uL (4.30-5.70); RED CELL DISTRIBUTION WIDTH 13.2 % (11.5-14.5); WHITE BLOOD COUNT 10.1 x10^3/uL (4.0-11.0)
[2017-05-12 05:11] LABS: CREATININE 0.7 mg/dL (0.7-1.3); POTASSIUM 4.5 mmol/L (3.5-5.1)
[2017-05-12 05:30] LABS: CHOLESTEROL/HDL RATIO 8.7
[2017-05-12] MEDS ORDERED: REGADENOSON 0.4 MG/5 ML DISP.SYRIN. IV ONE (07:45)
[2017-05-12] MEDS: POLYETHYLENE GLYCOL 3350 17 GM PACKET. PO SCH (09:00)
[2017-05-12] MEDS: hydroCHLOROthiazide 12.5 MG CAPSULE PO SCH (09:08)
[2017-05-12] MEDS: METOPROLOL TART IMMED RELEASE 25 MG TABLET. PO SCH ×2 (09:08→21:18)
[2017-05-12] MEDS: NICOTINE 21MG PATCH. TD SCH (09:09)
[2017-05-12] MEDS: HYDROcodone/APAP 5/325MG 1 TAB TABLET PO PRN ×2 (09:18→19:21)
--- NOTE | 2017-05-12 10:40 | PDOC ---
PROGRESS NOTES Chief Complaint Chief Complaint cc: chest pain A/P ASSESSMENT: 1. Hypertensive emergency present on admission: BP not controlled, adjust medications. 2. Mild elevation of troponins.: stress pending. 3. Incidental finding of 8-mm solid nodule in the right upper lobe of the lungs , needs outpatient followup. Vitals Vitals Vital Signs Date Time Temp Pulse Resp B/P (MAP) Pulse Ox O2 Delivery O2 Flow Rate FiO2 05/12/17 09:18 16 98 Room Air 05/12/17 09:08 89 160/101 05/12/17 07:47 97.3 97.3 Physical Exam General: Alert, Oriented X3, Cooperative, No acute distress Heart: Regular rate, Normal S1, Normal S2 Lungs: Clear Abdomen: Other (slight tenderness in the lower abdomen) Extremities: No clubbing Labs LABS Laboratory Tests Test 05/11/17 12:45 05/11/17 18:30 05/12/17 03:40 05/12/17 03:45 Troponin I Quantitative 0.096 ng/mL (0.000-0.055) 0.087 ng/mL (0.000-0.055) 0.064 ng/mL (0.000-0.055) White Blood Count 10.1 x10^3/uL (4.0-11.0) Red Blood Count 5.94 x10^6/uL (4.30-5.70) Hemoglobin 18.0 g/dL (13.0-17.5) Hematocrit 54.2 % (39.0-53.0) Mean Corpuscular Volume 91 fL (79-100) Mean Corpuscular Hemoglobin 30 pg (25-35) Mean Corpuscular Hemoglobin Concent 33 g/dL (31-37) Red Cell Distribution Width 13.2 % (11.5-14.5) Platelet Count 220 x10^3/uL (140-400) Neutrophils (%) (Auto) 55 % (31-73) Lymphocytes (%) (Auto) 32 % (24-48) Monocytes (%) (Auto) 6 % (0-9) Eosinophils (%) (Auto) 5 % (0-3) Basophils (%) (Auto) 1 % (0-3) Neutrophils # (Auto) 5.6 x10^3uL (1.8-7.7) Lymphocytes # (Auto) 3.2 x10^3/uL (1.0-4.8) Monocytes # (Auto) 0.6 x10^3/uL (0.0-1.1) Eosinophils # (Auto) 0.5 x10^3/uL (0.0-0.7) Basophils # (Auto) 0.1 x10^3/uL (0.0-0.2) Sodium Level 137 mmol/L (136-145) Potassium Level 4.5 mmol/L (3.5-5.1) Chloride Level 102 mmol/L (98-107) Carbon Dioxide Level 20 mmol/L (21-32) Anion Gap 15 (6-14) Blood Urea Nitrogen 11 mg/dL (8-26) Creatinine 0.7 mg/dL (0.7-1.3) Estimated GFR (Cockcroft-Gault) 122.0 Glucose Level 99 mg/dL (70-99) Calcium Level 9.0 mg/dL (8.5-10.1) Triglycerides Level 164 mg/dL (0-150) Cholesterol Level 218 mg/dL (0-200) LDL Cholesterol, Calculated 160 mg/dL (0-100) VLDL Cholesterol, Calculated 33 mg/dL (0-40) Non-HDL Cholesterol Calculated 193 mg/dL (0-129) HDL Cholesterol 25 mg/dL (40-60) Cholesterol/HDL Ratio 8.7 Assessment and Plan Assessmemt and Plan Problems Medical Problems: (1) Abdominal pain Status: Acute (2) Hypertensive emergency Status: Acute Problems: Comment Review of Relevant I have reviewed the following items kar (where applicable) has been applied. Labs Laboratory Tests Test 05/11/17 01:49 05/11/17 02:05 05/11/17 03:34 05/11/17 12:45 White Blood Count 8.5 x10^3/uL (4.0-11.0) Red Blood Count 5.37 x10^6/uL (4.30-5.70) Hemoglobin 16.5 g/dL (13.0-17.5) Hematocrit 48.1 % (39.0-53.0) Mean Corpuscular Volume 90 fL (79-100) Mean Corpuscular Hemoglobin 31 pg (25-35) Mean Corpuscular Hemoglobin Concent 34 g/dL (31-37) Red Cell Distribution Width 13.5 % (11.5-14.5) Platelet Count 236 x10^3/uL (140-400) Neutrophils (%) (Auto) 66 % (31-73) Lymphocytes (%) (Auto) 23 % (24-48) Monocytes (%) (Auto) 7 % (0-9) Eosinophils (%) (Auto) 3 % (0-3) Basophils (%) (Auto) 1 % (0-3) Neutrophils # (Auto) 5.6 x10^3uL (1.8-7.7) Lymphocytes # (Auto) 2.0 x10^3/uL (1.0-4.8) Monocytes # (Auto) 0.6 x10^3/uL (0.0-1.1) Eosinophils # (Auto) 0.3 x10^3/uL (0.0-0.7) Basophils # (Auto) 0.1 x10^3/uL (0.0-0.2) Sodium Level 138 mmol/L (136-145) Potassium Level 3.9 mmol/L (3.5-5.1) Chloride Level 102 mmol/L (98-107) Carbon Dioxide Level 31 mmol/L (21-32) Anion Gap 5 (6-14) Blood Urea Nitrogen 11 mg/dL (8-26) Creatinine 1.1 mg/dL (0.7-1.3) Estimated GFR (Cockcroft-Gault) 72.4 BUN/Creatinine Ratio 10 (6-20) Glucose Level 103 mg/dL (70-99) Calcium Level 8.8 mg/dL (8.5-10.1) Total Bilirubin 0.5 mg/dL (0.2-1.0) Aspartate Amino Transf (AST/SGOT) 34 U/L (15-37) Alanine Aminotransferase (ALT/SGPT) 37 U/L (16-63) Alkaline Phosphatase 73 U/L (46-116) Troponin I Quantitative 0.102 ng/mL (0.000-0.055) 0.096 ng/mL (0.000-0.055) Total Protein 7.6 g/dL (6.4-8.2) Albumin 3.8 g/dL (3.4-5.0) Albumin/Globulin Ratio 1.0 (1.0-1.7) Lipase 339 U/L (73-393) Lactic Acid Level 1.8 mmol/L (0.4-2.0) Urine Collection Type Unknown Urine Color Yellow Urine Clarity Clear Urine pH 6.0 Urine Specific Braman 1.015 Urine Protein >=300 mg/dL (NEG-TRACE) Urine Glucose (UA) Negative mg/dL (NEG) Urine Ketones (Stick) Negative mg/dL (NEG) Urine Blood Negative (NEG) Urine Nitrite Negative (NEG) Urine Bilirubin Negative (NEG) Urine Urobilinogen Dipstick 0.2 mg/dL (0.2 mg/dL) Urine Leukocyte Esterase Negative (NEG) Urine RBC Occ /HPF (0-2) Urine WBC Occ /HPF (0-4) Urine Squamous Epithelial Cells None /LPF Urine Bacteria 0 /HPF (0-FEW) Urine Mucus Slight /LPF Urine Sperm Present /HPF Test 05/11/17 18:30 05/12/17 03:40 05/12/17 03:45 Troponin I Quantitative 0.087 ng/mL (0.000-0.055) 0.064 ng/mL (0.000-0.055) White Blood Count 10.1 x10^3/uL (4.0-11.0) Red Blood Count 5.94 x10^6/uL (4.30-5.70) Hemoglobin 18.0 g/dL (13.0-17.5) Hematocrit 54.2 % (39.0-53.0) Mean Corpuscular Volume 91 fL (79-100) Mean Corpuscular Hemoglobin 30 pg (25-35) Mean Corpuscular Hemoglobin Concent 33 g/dL (31-37) Red Cell Distribution Width 13.2 % (11.5-14.5) Platelet Count 220 x10^3/uL (140-400) Neutrophils (%) (Auto) 55 % (31-73) Lymphocytes (%) (Auto) 32 % (24-48) Monocytes (%) (Auto) 6 % (0-9) Eosinophils (%) (Auto) 5 % (0-3) Basophils (%) (Auto) 1 % (0-3) Neutrophils # (Auto) 5.6 x10^3uL (1.8-7.7) Lymphocytes # (Auto) 3.2 x10^3/uL (1.0-4.8) Monocytes # (Auto) 0.6 x10^3/uL (0.0-1.1) Eosinophils # (Auto) 0.5 x10^3/uL (0.0-0.7) Basophils # (Auto) 0.1 x10^3/uL (0.0-0.2) Sodium Level 137 mmol/L (136-145) Potassium Level 4.5 mmol/L (3.5-5.1) Chloride Level 102 mmol/L (98-107) Carbon Dioxide Level 20 mmol/L (21-32) Anion Gap 15 (6-14) Blood Urea Nitrogen 11 mg/dL (8-26) Creatinine 0.7 mg/dL (0.7-1.3) Estimated GFR (Cockcroft-Gault) 122.0 Glucose Level 99 mg/dL (70-99) Calcium Level 9.0 mg/dL (8.5-10.1) Triglycerides Level 164 mg/dL (0-150) Cholesterol Level 218 mg/dL (0-200) LDL Cholesterol, Calculated 160 mg/dL (0-100) VLDL Cholesterol, Calculated 33 mg/dL (0-40) Non-HDL Cholesterol Calculated 193 mg/dL (0-129) HDL Cholesterol 25 mg/dL (40-60) Cholesterol/HDL Ratio 8.7 Laboratory Tests Test 05/11/17 12:45 05/11/17 18:30 05/12/17 03:40 05/12/17 03:45 Troponin I Quantitative 0.096 ng/mL (0.000-0.055) 0.087 ng/mL (0.000-0.055) 0.064 ng/mL (0.000-0.055) White Blood Count 10.1 x10^3/uL (4.0-11.0) Red Blood Count 5.94 x10^6/uL (4.30-5.70) Hemoglobin 18.0 g/dL (13.0-17.5) Hematocrit 54.2 % (39.0-53.0) Mean Corpuscular Volume 91 fL (79-100) Mean Corpuscular Hemoglobin 30 pg (25-35) Mean Corpuscular Hemoglobin Concent 33 g/dL (31-37) Red Cell Distribution Width 13.2 % (11.5-14.5) Platelet Count 220 x10^3/uL (140-400) Neutrophils (%) (Auto) 55 % (31-73) Lymphocytes (%) (Auto) 32 % (24-48) Monocytes (%) (Auto) 6 % (0-9) Eosinophils (%) (Auto) 5 % (0-3) Basophils (%) (Auto) 1 % (0-3) Neutrophils # (Auto) 5.6 x10^3uL (1.8-7.7) Lymphocytes # (Auto) 3.2 x10^3/uL (1.0-4.8) Monocytes # (Auto) 0.6 x10^3/uL (0.0-1.1) Eosinophils # (Auto) 0.5 x10^3/uL (0.0-0.7) Basophils # (Auto) 0.1 x10^3/uL (0.0-0.2) Sodium Level 137 mmol/L (136-145) Potassium Level 4.5 mmol/L (3.5-5.1) Chloride Level 102 mmol/L (98-107) Carbon Dioxide Level 20 mmol/L (21-32) Anion Gap 15 (6-14) Blood Urea Nitrogen 11 mg/dL (8-26) Creatinine 0.7 mg/dL (0.7-1.3) Estimated GFR (Cockcroft-Gault) 122.0 Glucose Level 99 mg/dL (70-99) Calcium Level 9.0 mg/dL (8.5-10.1) Triglycerides Level 164 mg/dL (0-150) Cholesterol Level 218 mg/dL (0-200) LDL Cholesterol, Calculated 160 mg/dL (0-100) VLDL Cholesterol, Calculated 33 mg/dL (0-40) Non-HDL Cholesterol Calculated 193 mg/dL (0-129) HDL Cholesterol 25 mg/dL (40-60) Cholesterol/HDL Ratio 8.7 Microbiology 05/11/17 Blood Culture - Preliminary, Resulted NO GROWTH AFTER 1 DAY Medications Current Medications Iohexol (Omnipaque 300 Mg/ml) 75 ml 1X ONCE IV ; Start 05/11/17 at 02:00; Stop 05/11/17 at 02:01; Status DC Info (Do NOT chart on this entry -- for MONITORING) 1 each PRN DAILY PRN MC SEE COMMENTS; Start 05/11/17 at 01:30; Stop 05/13/17 at 01:29 Clonidine HCl (Catapres) 0.2 mg 1X ONCE PO Last administered on 05/11/17 01: 58; Start 05/11/17 at 02:00; Stop 05/11/17 at 02:01; Status DC Nicardipine HCl 50 mg/Sodium Chloride 270 ml @ 0 mls/hr CONT PRN IV SEE I/O RECORD Last administered on 05/11/17 04:22; Start 05/11/17 at 04:15 Aspirin (Children'S Aspirin) 324 mg 1X ONCE PO Last administered on 05/11/17 04:46; Start 05/11/17 at 05:00; Stop 05/11/17 at 05:01; Status DC Sodium Chloride 1,000 ml @ 1,000 mls/hr 1X ONCE IV Last administered on 04:50; Start 05/11/17 at 05:00; Stop 05/11/17 at 05:59; Status DC Morphine Sulfate 4 mg PRN Q2HR PRN IV SEVERE PAIN; Start 05/11/17 at 06:00 Metoprolol Tartrate (Lopressor) 25 mg BID PO Last administered on 05/12/17 09: 08; Start 05/11/17 at 09:00 Acetaminophen (Tylenol) 325 mg PRN Q6HRS PRN PO MILD PAIN / TEMP Last administered on 05/11/17 11:23; Start 05/11/17 at 07:30 Acetaminophen/ Hydrocodone Bitart (Lortab 5/325) 1 tab PRN Q6HRS PRN PO MODERATE TO SEVERE PAIN Last administered on 05/12/17 09:18; Start 05/11/17 at 07:30 Hydralazine HCl (Apresoline) 10 mg PRN Q4HRS PRN IVP ELEVATED BP, SEE COMMENTS Last administered on 05/12/17 03:15; Start 05/11/17 at 07:30 Ondansetron HCl (Zofran) 4 mg PRN Q8HRS PRN IV NAUSEA/VOMITING; Start 05/11/17 at 07:30 Albuterol Sulfate (Ventolin Neb Soln) 2.5 mg PRN Q4HRS PRN NEB SHORTNESS OF BREATH; Start 05/11/17 at 07:30 Hydrochlorothiazide (Microzide) 12.5 mg DAILY PO Last administered on 09:55; Start 05/11/17 at 10:00; Stop 05/11/17 at 19:21; Status DC Polyethylene Glycol (miraLAX PACKET) 17 gm DAILY PO ; Start 05/11/17 at 16:00 Nicotine (Nicoderm Cq 21mg) 1 patch DAILY TD Last administered on 05/12/17 09: 09; Start 05/11/17 at 16:00 Hydrochlorothiazide (Microzide) 25 mg DAILY PO Last administered on 05/12/17 09:08; Start 05/12/17 at 09:00 Regadenoson (Lexiscan) 0.4 mg 1X ONCE IV Last administered on 05/12/17 07:45 ; Start 05/12/17 at 07:45; Stop 05/12/17 at 07:46; Status DC Vitals/I & O Vital Sign - Last 24 Hours 05/11/17 05/11/17 05/11/17 05/11/17 11:00 11:45 13:01 15:00 Temp 97.3 97.5 97.3 97.5 Pulse 73 77 71 Resp 17 20 18 B/P (MAP) 141/83 (102) 138/95 (109) 148/103 (118) Pulse Ox 95 97 98 97 O2 Delivery Room Air Room Air Nasal Cannula Room Air 05/11/17 05/11/17 05/11/17 05/11/17 15:34 18:59 19:10 20:52 Temp 97.3 97.3 Pulse 77 73 75 Resp 18 18 B/P (MAP) 149/99 (116) 157/100 (119) 157/100 Pulse Ox 96 O2 Delivery Room Air Room Air Room Air 05/11/17 05/11/17 05/11/17 05/12/17 23:00 23:14 23:50 03:03 Temp 98.0 97.5 98.0 97.5 Pulse 89 80 69 Resp 18 18 B/P (MAP) 172/118 (136) 172/118 167/91 (116) 161/103 (122) Pulse Ox 99 94 O2 Delivery Room Air Room Air 6/12/17 6/12/17 6/12/17 6/12/17 03:15 05:15 07:47 08:00 Temp 97.3 97.3 Pulse 93 80 89 Resp 17 B/P (MAP) 161/103 151/92 (111) 160/101 (120) Pulse Ox 98 O2 Delivery Room Air Room Air 05/12/17 05/12/17 09:08 09:18 Pulse 89 Resp 16 B/P (MAP) 160/101 Pulse Ox 98 O2 Delivery Room Air Intake and Output 05/11/17 05/11/17 05/12/17 15:00 23:00 07:00 Intake Total 830 ml 240 ml 0 ml Output Total 1400 ml Balance -570 ml 240 ml 0 ml BELKIS DIAMOND MD May 12, 2017 10:40
--- NOTE | 2017-05-12 12:17 | RAD ---
APPROVED REPORT Test Type: Pharmacological Stress Nurse/Tech: Michelle Conte R.N. Test Indications: Elevated Troponin Cardiac History: HTN Medications: SEE EMR Medical History: Current Smoker Resting ECG: SR Resting Heart Rate: 92 bpm Resting Blood Pressure: 164/96mmHg Pretest Chest Pain: None Nurse/Tech Notes S1S2, lungs CTA but diminished throughout, denied chest pain, SOA or dizziness. Consent: The procedure was explained to the patient in lay terms. Informed consent was witnessed. Neil eout was entered into [facility]. History and Stress Test performed by Michelle Conte R.N. Pharm. Details Pharmacologic stress testing was performed using 0.4mg per 5ml of regadenoson given intravenously ove r 7-10 seconds. Stress Symptoms None reported. POST EXERCISE Max HR: 95 bpm Max Blood Pressure: 165/99mmHg Blood Pressure response to exercise: Normal blood pressure response during stress. Heart Rate response to exercise: Normal Chest Pain: No. Arrhythmia: No. ST Change: No. INTERPRETATION Stress EKG Conclusion: The resting EKG showed a sinus rhythm, mild left atrial enlargement and nonspe cific ST-T wave changes. With stress patient's EKG changes become somewhat more prominent. Baseline mildly abnormal ST segment changes have become more prominent with stress. This is suggestiv e but not diagnostic of ischemia. Imaging Protocol IMAGE PROTOCOL: Rest Tc-99m/stress Tc-99m 1 day Rest: Stress: Viability: Radiopharm.Tc99m [id number] Sestamibi Dose10.5mCi 35mCi Duration 15min. 10min. Img Date 05/12/2017 05/12/2017 Inj-Img [id number]. 75min. Rest Admin Site:[facility] - Central LineAdministrator:Génesis Keys, RT (R)(N) Stress Admin Site: [facility] - Central LineAdministrator: COLBY Mckeon, ARRT (R)(N) STRESS DATA End Diast. Vol.294.0mlAv. Heart Rate82.0bpm End Syst. Vol.217.0mlCO Index BSA6.3L/min Myocardial Lffq792.0gEject. Pkkvomqq30.0% Stress Rates Pk. Fill Rate1.73EDV/secLVtime Pk. Fill 210.31msec Pk. Empty Rate1.84ESV/secLVtime Pk. Vqnlj225.44msec 1/3 Pk. Fill0.34EDV/sec Stress Scores Regional WT3.00Summed WT44.00 Regional WM2.00Summed WM37.00 LV Perfusion The stress images show a mild to moderate defect in the septal apical region. The rest images show a small apical defect. Nuclear imaging is suggestive of mild largely reversible area of ischemia in the septal apical region . Wall Motion Left ventricular systolic function is globally decreased with an ejection fraction of 26%. LV Perf. Quant 17 Seg. SSS4.00 17 Seg. SRS5.00 17 Seg. SDS2.00 Stress Defect Extent (% LAD)27.50Rest Defect Extent (% LAD)28.10Rev. Defect Extent (% LAD)18.10 Stress Defect Extent (% LCX) 11.30Rest Defect Extent (% LCX)0.00Rev. Defect Extent (% LCX)10.00 Stress Defect Extent (% RCA)2.20Rest Defect Extent (% RCA)0.00Rev. Defect Extent (% RCA)2.20 Stress Defect Extent (% ANALI)15.70Rest Defect Extent (% ANALI)12.40Rev. Defect Extent (% ANALI)10.40 Conclusion 1. Mildly abnormal baseline EKG with further EKG changes with stress suggestive but not diagnostic fo r ischemia. 2. Nuclear imaging shows a mild largely reversible area of ischemia in the septal apical wall. 3. Decreased ejection fraction of 26% with global hypokinesis. 4. Moderate risk Lexiscan nuclear stress test.
--- NOTE | 2017-05-12 13:16 | PDOC ---
CARDIO Progress Notes Date and Time Date of Service 05/12/2017 Time of Evaluation 1309 Subjective Subjective: No Chest Pain, No shortness of breath, No Palpitations, No Dizziness Vitals Vitals Vital Signs Date Time Temp Pulse Resp B/P (MAP) Pulse Ox O2 Delivery O2 Flow Rate FiO2 05/12/17 11:09 97.4 79 20 141/88 (105) 95 Room Air 97.4 Weight Weight [ ] Input and Output Intake and Output Intake and Output 05/12/17 07:00 Intake Total 1070 ml Output Total 1400 ml Balance -330 ml Intake Oral 1070 ml Output Urine Total 1400 ml # Voids 2 # Bowel Movements 1 Laboratory Labs Laboratory Tests Test 05/11/17 18:30 05/12/17 03:40 05/12/17 03:45 Troponin I Quantitative 0.087 ng/mL (0.000-0.055) 0.064 ng/mL (0.000-0.055) White Blood Count 10.1 x10^3/uL (4.0-11.0) Red Blood Count 5.94 x10^6/uL (4.30-5.70) Hemoglobin 18.0 g/dL (13.0-17.5) Hematocrit 54.2 % (39.0-53.0) Mean Corpuscular Volume 91 fL (79-100) Mean Corpuscular Hemoglobin 30 pg (25-35) Mean Corpuscular Hemoglobin Concent 33 g/dL (31-37) Red Cell Distribution Width 13.2 % (11.5-14.5) Platelet Count 220 x10^3/uL (140-400) Neutrophils (%) (Auto) 55 % (31-73) Lymphocytes (%) (Auto) 32 % (24-48) Monocytes (%) (Auto) 6 % (0-9) Eosinophils (%) (Auto) 5 % (0-3) Basophils (%) (Auto) 1 % (0-3) Neutrophils # (Auto) 5.6 x10^3uL (1.8-7.7) Lymphocytes # (Auto) 3.2 x10^3/uL (1.0-4.8) Monocytes # (Auto) 0.6 x10^3/uL (0.0-1.1) Eosinophils # (Auto) 0.5 x10^3/uL (0.0-0.7) Basophils # (Auto) 0.1 x10^3/uL (0.0-0.2) Sodium Level 137 mmol/L (136-145) Potassium Level 4.5 mmol/L (3.5-5.1) Chloride Level 102 mmol/L (98-107) Carbon Dioxide Level 20 mmol/L (21-32) Anion Gap 15 (6-14) Blood Urea Nitrogen 11 mg/dL (8-26) Creatinine 0.7 mg/dL (0.7-1.3) Estimated GFR (Cockcroft-Gault) 122.0 Glucose Level 99 mg/dL (70-99) Calcium Level 9.0 mg/dL (8.5-10.1) Triglycerides Level 164 mg/dL (0-150) Cholesterol Level 218 mg/dL (0-200) LDL Cholesterol, Calculated 160 mg/dL (0-100) VLDL Cholesterol, Calculated 33 mg/dL (0-40) Non-HDL Cholesterol Calculated 193 mg/dL (0-129) HDL Cholesterol 25 mg/dL (40-60) Cholesterol/HDL Ratio 8.7 Microbiology Micro Microbiology 05/11/17 Blood Culture - Preliminary, Resulted NO GROWTH AFTER 1 DAY Physical Exam HEENT: Neck Supple W Full Motion Chest: Symmetric LUNGS: Clear to Auscultation Heart: S1S2, RRR Abdomen: Soft N/T Extremities: 2+ Dorsalis Pedis, 2+ Posterior Tibial Neurology: alert, oriented, follow commands Assessment Assessment 1. Groin and abdominal pain. Significantly improved. No acute changes on CT scans. 2. Accelerated hypertension. improving no ADAM increase BB and add acei 3. Minimally elevated troponin at 0.102. abnormal MPI with ischemia septal apical wall recommended cardiac cath for tomorrow for further evaluation planned for 929 4. cardiomyopathy LVEF ~ 26% on MPI added ACEI; continue BB 5. mixed HLD continue high dose statin therapy NORIS CLAYTON [employer] May 12, 2017 13:16
[2017-05-12] MEDS ORDERED: LISINOPRIL 5 MG TABLET. PO SCH (21:00)
[2017-05-12] MEDS: ATORVASTATIN CALCIUM 40 MG TABLET. PO SCH (21:15)
[2017-05-12] MEDS: ZOLPIDEM 5 MG TABLET. PO PRN (23:01)
[2017-05-12] MEDS: METOPROLOL TARTRATE 5 MG/5 ML VIAL. IVP PRN (23:31)
[2017-05-13] VITALS (21 sets, daily range): BP systolic 151–214; BP diastolic 79–127
[2017-05-13] MEDS: hydrALAZINE 20 MG/ML VIAL. IVP PRN ×2 (03:10→13:14)
[2017-05-13] MEDS: IV NORMAL SALINE 1000ML BAG 1,000 ML IV SCH ×2 (06:32→19:30)
[2017-05-13] MEDS: METOPROLOL TARTRATE 5 MG/5 ML VIAL. IVP PRN (06:42)
[2017-05-13] MEDS: HYDROcodone/APAP 5/325MG 1 TAB TABLET PO PRN ×3 (06:43→19:30)
[2017-05-13] MEDS ORDERED: LIDOCAINE 2% 20 ML VIAL. ONE (08:51)
[2017-05-13] MEDS ORDERED: IOHEXOL 350 MG/ML 100 ML VIAL. ONE ×2 (08:51→09:53)
[2017-05-13] MEDS: POLYETHYLENE GLYCOL 3350 17 GM PACKET. PO SCH (09:00)
[2017-05-13] MEDS: METOPROLOL TART IMMED RELEASE 25 MG TABLET. PO SCH ×3 (09:00→20:04)
[2017-05-13] MEDS ORDERED: VERAPAMIL 5 MG/2 ML VIAL. ONE ×2 (09:20→10:00)
[2017-05-13] MEDS ORDERED: NITROGLYCERIN 200 MCG/2 ML SYRINGE FOR CATH/VASC LAB. ONE (09:20)
[2017-05-13] MEDS ORDERED: HEPARIN for IV BOLUS 10,000 UNIT/10 ML VIAL. ONE (09:21)
[2017-05-13] MEDS ORDERED: MIDAZOLAM HCL/PF 2 MG/2 ML VIAL. ONE (09:21)
[2017-05-13] MEDS ORDERED: fentaNYL PF VIAL 100 MCG/2 ML VIAL ONE (09:21)
[2017-05-13] MEDS ORDERED: BIVALIRUDIN 250 MG VIAL. IV ONE ×2 (09:44→10:00)
[2017-05-13] MEDS ORDERED: NITROGLYCERIN 200 MCG/2 ML SYRINGE FOR CATH/VASC LAB. IART ONE (10:00)
[2017-05-13] MEDS ORDERED: VERAPAMIL 5 MG/2 ML VIAL. IART ONE (10:00)
[2017-05-13] MEDS ORDERED: IOHEXOL 350 MG/ML 100 ML VIAL. IART ONE (10:00)
[2017-05-13] MEDS ORDERED: HEPARIN for IV BOLUS 10,000 UNIT/10 ML VIAL. IART ONE (10:00)
[2017-05-13] MEDS ORDERED: MIDAZOLAM HCL/PF 2 MG/2 ML VIAL. IV ONE (10:00)
[2017-05-13] MEDS ORDERED: LIDOCAINE 2% 20 ML VIAL. IJ ONE (10:00)
[2017-05-13] MEDS ORDERED: fentaNYL PF VIAL 100 MCG/2 ML VIAL IV ONE (10:00)
[2017-05-13] MEDS ORDERED: CLOPIDOGREL BISULFATE 75 MG TABLET ONE (10:26)
[2017-05-13] MEDS ORDERED: ASPIRIN 325 MG TABLET ONE (10:26)
[2017-05-13] MEDS ORDERED: CLOPIDOGREL BISULFATE 75 MG TABLET PO ONE (10:45)
[2017-05-13] MEDS ORDERED: ASPIRIN 325 MG TABLET PO ONE (10:45)
--- NOTE | 2017-05-13 11:02 | PDOC ---
MODERATE SEDATION ASSESSMENT RISKS/ALTERNATIVES Risks/Alternatives Risks and alternatives of this type of sedation and procedure discussed with: RISK/ALTERNATIVES: Patient H & P ON CHART H & P H & P on chart and reviewed for co-morbid conditions and appropriate labs. H&P ON CHART: Yes STATUS PREG STATUS ASSESSED: N/A MEDS/ALLERGIES REVIEWED Meds/Allergies Reviewed Medications and Allergies including time and route of recently administered narcotics and sedatives. MEDS/ALLERGIES REVIEWED: Yes ASA RATING ASA RATING: II AIRWAY ASSESSMENT Airway Assessment Airway patency, oral function limitations, presence of caps, crowns, dentures, partials, and ability to extend neck assessed. AIRWAY ASSESSMENT: Yes MALLAMPATI SCORE MALLAMPATI SCORE: II PRE-SEDATION ASSESSMENT PRE-SEDATION ASSESSMENT: Yes JEIMY BLAIR MD May 13, 2017 11:02
[2017-05-13] MEDS ORDERED: ACETAMINOPHEN 325 MG TABLET. PO PRN (11:15)
[2017-05-13] MEDS ORDERED: NITROGLYCERIN SUBLINGUAL 0.4 MG BOTTLE OF 25. SL PRN (11:15)
[2017-05-13] MEDS: hydroCHLOROthiazide 12.5 MG CAPSULE PO SCH (11:21)
[2017-05-13] MEDS: NICOTINE 21MG PATCH. TD SCH (11:22)
[2017-05-13] MEDS: IV 1/2 NORMAL SALINE 1,000 ML IV SCH (11:23)
[2017-05-13 11:58] LABS: BASO # 0.1 x10^3/uL (0.0-0.2); BASO % 1 % (0-3); EOS % 2 % (0-3); HEMOGLOBIN 19.1 g/dL (13.0-17.5); LYMPH # 1.3 x10^3/uL (1.0-4.8); LYMPH % 13 % (24-48); MEAN CORPUSCULAR HEMOGLOBIN 31 pg (25-35); MEAN CORPUSCULAR HGB CONC 34 g/dL (31-37); MEAN CORPUSCULAR VOLUME 90 fL (79-100); MONO % 8 % (0-9); NEUT % 77 % (31-73); PLATELET COUNT 231 x10^3/uL (140-400); RED BLOOD COUNT 6.22 x10^6/uL (4.30-5.70); RED CELL DISTRIBUTION WIDTH 13.4 % (11.5-14.5)
[2017-05-13 12:10] LABS: CALCIUM 9.3 mg/dL (8.5-10.1); CREATININE 1.1 mg/dL (0.7-1.3); GFR 72.4; POTASSIUM 4.1 mmol/L (3.5-5.1)
--- NOTE | 2017-05-13 12:24 | PDOC ---
PROGRESS NOTES Chief Complaint Chief Complaint cc: chest pain A/P ASSESSMENT: 1. Hypertensive emergency present on admission: BP not controlled, adjust medications. 2. Mild elevation of troponin.: .Abnormal MPI testing with apical septal ischemia, s/p cardiac cath today, PCI to RCA per prelim report, on dual antiplatelet therapy, 3. Incidental finding of 8-mm solid nodule in the right upper lobe of the lungs , needs outpatient followup. 4. Inguinal hernia: need out pt follow up with General surgery. History of Present Illness History of Present Illness no chest pain feeling better no fever no chills Vitals Vitals Vital Signs Date Time Temp Pulse Resp B/P (MAP) Pulse Ox O2 Delivery O2 Flow Rate FiO2 05/13/17 11:21 86 188/117 05/13/17 10:59 14 99 Nasal Cannula 2.0 05/13/17 03:00 98.4 98.4 Physical Exam General: Alert, Oriented X3, Cooperative, No acute distress Heart: Regular rate, Normal S1, Normal S2 Lungs: Clear Abdomen: Other (slight tenderness in the lower abdomen) Extremities: No clubbing Labs LABS Laboratory Tests Test 05/13/17 11:45 White Blood Count 10.0 x10^3/uL (4.0-11.0) Red Blood Count 6.22 x10^6/uL (4.30-5.70) Hemoglobin 19.1 g/dL (13.0-17.5) Hematocrit 56.0 % (39.0-53.0) Mean Corpuscular Volume 90 fL (79-100) Mean Corpuscular Hemoglobin 31 pg (25-35) Mean Corpuscular Hemoglobin Concent 34 g/dL (31-37) Red Cell Distribution Width 13.4 % (11.5-14.5) Platelet Count 231 x10^3/uL (140-400) Neutrophils (%) (Auto) 77 % (31-73) Lymphocytes (%) (Auto) 13 % (24-48) Monocytes (%) (Auto) 8 % (0-9) Eosinophils (%) (Auto) 2 % (0-3) Basophils (%) (Auto) 1 % (0-3) Neutrophils # (Auto) 7.8 x10^3uL (1.8-7.7) Lymphocytes # (Auto) 1.3 x10^3/uL (1.0-4.8) Monocytes # (Auto) 0.8 x10^3/uL (0.0-1.1) Eosinophils # (Auto) 0.2 x10^3/uL (0.0-0.7) Basophils # (Auto) 0.1 x10^3/uL (0.0-0.2) Sodium Level 137 mmol/L (136-145) Potassium Level 4.1 mmol/L (3.5-5.1) Chloride Level 100 mmol/L (98-107) Carbon Dioxide Level 27 mmol/L (21-32) Anion Gap 10 (6-14) Blood Urea Nitrogen 13 mg/dL (8-26) Creatinine 1.1 mg/dL (0.7-1.3) Estimated GFR (Cockcroft-Gault) 72.4 Glucose Level 134 mg/dL (70-99) Calcium Level 9.3 mg/dL (8.5-10.1) Assessment and Plan Assessmemt and Plan Problems Medical Problems: (1) Abdominal pain Status: Acute (2) Hypertensive emergency Status: Acute Problems: Comment Review of Relevant I have reviewed the following items kar (where applicable) has been applied. Labs Laboratory Tests Test 05/11/17 12:45 05/11/17 18:30 05/12/17 03:40 05/12/17 03:45 Troponin I Quantitative 0.096 ng/mL (0.000-0.055) 0.087 ng/mL (0.000-0.055) 0.064 ng/mL (0.000-0.055) White Blood Count 10.1 x10^3/uL (4.0-11.0) Red Blood Count 5.94 x10^6/uL (4.30-5.70) Hemoglobin 18.0 g/dL (13.0-17.5) Hematocrit 54.2 % (39.0-53.0) Mean Corpuscular Volume 91 fL (79-100) Mean Corpuscular Hemoglobin 30 pg (25-35) Mean Corpuscular Hemoglobin Concent 33 g/dL (31-37) Red Cell Distribution Width 13.2 % (11.5-14.5) Platelet Count 220 x10^3/uL (140-400) Neutrophils (%) (Auto) 55 % (31-73) Lymphocytes (%) (Auto) 32 % (24-48) Monocytes (%) (Auto) 6 % (0-9) Eosinophils (%) (Auto) 5 % (0-3) Basophils (%) (Auto) 1 % (0-3) Neutrophils # (Auto) 5.6 x10^3uL (1.8-7.7) Lymphocytes # (Auto) 3.2 x10^3/uL (1.0-4.8) Monocytes # (Auto) 0.6 x10^3/uL (0.0-1.1) Eosinophils # (Auto) 0.5 x10^3/uL (0.0-0.7) Basophils # (Auto) 0.1 x10^3/uL (0.0-0.2) Sodium Level 137 mmol/L (136-145) Potassium Level 4.5 mmol/L (3.5-5.1) Chloride Level 102 mmol/L (98-107) Carbon Dioxide Level 20 mmol/L (21-32) Anion Gap 15 (6-14) Blood Urea Nitrogen 11 mg/dL (8-26) Creatinine 0.7 mg/dL (0.7-1.3) Estimated GFR (Cockcroft-Gault) 122.0 Glucose Level 99 mg/dL (70-99) Calcium Level 9.0 mg/dL (8.5-10.1) Triglycerides Level 164 mg/dL (0-150) Cholesterol Level 218 mg/dL (0-200) LDL Cholesterol, Calculated 160 mg/dL (0-100) VLDL Cholesterol, Calculated 33 mg/dL (0-40) Non-HDL Cholesterol Calculated 193 mg/dL (0-129) HDL Cholesterol 25 mg/dL (40-60) Cholesterol/HDL Ratio 8.7 Test 05/13/17 11:45 White Blood Count 10.0 x10^3/uL (4.0-11.0) Red Blood Count 6.22 x10^6/uL (4.30-5.70) Hemoglobin 19.1 g/dL (13.0-17.5) Hematocrit 56.0 % (39.0-53.0) Mean Corpuscular Volume 90 fL (79-100) Mean Corpuscular Hemoglobin 31 pg (25-35) Mean Corpuscular Hemoglobin Concent 34 g/dL (31-37) Red Cell Distribution Width 13.4 % (11.5-14.5) Platelet Count 231 x10^3/uL (140-400) Neutrophils (%) (Auto) 77 % (31-73) Lymphocytes (%) (Auto) 13 % (24-48) Monocytes (%) (Auto) 8 % (0-9) Eosinophils (%) (Auto) 2 % (0-3) Basophils (%) (Auto) 1 % (0-3) Neutrophils # (Auto) 7.8 x10^3uL (1.8-7.7) Lymphocytes # (Auto) 1.3 x10^3/uL (1.0-4.8) Monocytes # (Auto) 0.8 x10^3/uL (0.0-1.1) Eosinophils # (Auto) 0.2 x10^3/uL (0.0-0.7) Basophils # (Auto) 0.1 x10^3/uL (0.0-0.2) Sodium Level 137 mmol/L (136-145) Potassium Level 4.1 mmol/L (3.5-5.1) Chloride Level 100 mmol/L (98-107) Carbon Dioxide Level 27 mmol/L (21-32) Anion Gap 10 (6-14) Blood Urea Nitrogen 13 mg/dL (8-26) Creatinine 1.1 mg/dL (0.7-1.3) Estimated GFR (Cockcroft-Gault) 72.4 Glucose Level 134 mg/dL (70-99) Calcium Level 9.3 mg/dL (8.5-10.1) Laboratory Tests Test 05/13/17 11:45 White Blood Count 10.0 x10^3/uL (4.0-11.0) Red Blood Count 6.22 x10^6/uL (4.30-5.70) Hemoglobin 19.1 g/dL (13.0-17.5) Hematocrit 56.0 % (39.0-53.0) Mean Corpuscular Volume 90 fL (79-100) Mean Corpuscular Hemoglobin 31 pg (25-35) Mean Corpuscular Hemoglobin Concent 34 g/dL (31-37) Red Cell Distribution Width 13.4 % (11.5-14.5) Platelet Count 231 x10^3/uL (140-400) Neutrophils (%) (Auto) 77 % (31-73) Lymphocytes (%) (Auto) 13 % (24-48) Monocytes (%) (Auto) 8 % (0-9) Eosinophils (%) (Auto) 2 % (0-3) Basophils (%) (Auto) 1 % (0-3) Neutrophils # (Auto) 7.8 x10^3uL (1.8-7.7) Lymphocytes # (Auto) 1.3 x10^3/uL (1.0-4.8) Monocytes # (Auto) 0.8 x10^3/uL (0.0-1.1) Eosinophils # (Auto) 0.2 x10^3/uL (0.0-0.7) Basophils # (Auto) 0.1 x10^3/uL (0.0-0.2) Sodium Level 137 mmol/L (136-145) Potassium Level 4.1 mmol/L (3.5-5.1) Chloride Level 100 mmol/L (98-107) Carbon Dioxide Level 27 mmol/L (21-32) Anion Gap 10 (6-14) Blood Urea Nitrogen 13 mg/dL (8-26) Creatinine 1.1 mg/dL (0.7-1.3) Estimated GFR (Cockcroft-Gault) 72.4 Glucose Level 134 mg/dL (70-99) Calcium Level 9.3 mg/dL (8.5-10.1) Microbiology 05/11/17 Blood Culture - Preliminary, Resulted NO GROWTH AFTER 2 DAYS Medications Current Medications Iohexol (Omnipaque 300 Mg/ml) 75 ml 1X ONCE IV ; Start 05/11/17 at 02:00; Stop 05/11/17 at 02:01; Status DC Info (Do NOT chart on this entry -- for MONITORING) 1 each PRN DAILY PRN MC SEE COMMENTS; Start 05/11/17 at 01:30; Stop 05/13/17 at 01:29; Status DC Clonidine HCl (Catapres) 0.2 mg 1X ONCE PO Last administered on 05/11/17t 01: 58; Start 05/11/17 at 02:00; Stop 05/11/17 at 02:01; Status DC Nicardipine HCl 50 mg/Sodium Chloride 270 ml @ 0 mls/hr CONT PRN IV SEE I/O RECORD Last administered on 05/11/17 04:22; Start 05/11/17 at 04:15 Aspirin (Children'S Aspirin) 324 mg 1X ONCE PO Last administered on 05/11/17 04:46; Start 05/11/17 at 05:00; Stop 05/11/17 at 05:01; Status DC Sodium Chloride 1,000 ml @ 1,000 mls/hr 1X ONCE IV Last administered on 04:50; Start 05/11/17 at 05:00; Stop 05/11/17 at 05:59; Status DC Morphine Sulfate 4 mg PRN Q2HR PRN IV SEVERE PAIN; Start 05/11/17 at 06:00 Metoprolol Tartrate (Lopressor) 25 mg BID PO Last administered on 05/12/17 21: 18; Start 05/11/17 at 09:00 Acetaminophen (Tylenol) 325 mg PRN Q6HRS PRN PO MILD PAIN / TEMP Last administered on 05/11/17 11:23; Start 05/11/17 at 07:30 Acetaminophen/ Hydrocodone Bitart (Lortab 5/325) 1 tab PRN Q6HRS PRN PO MODERATE TO SEVERE PAIN Last administered on 05/13/17 06:43; Start 05/11/17 at 07:30 Hydralazine HCl (Apresoline) 10 mg PRN Q4HRS PRN IVP ELEVATED BP, SEE COMMENTS Last administered on 05/13/17 03:10; Start 05/11/17 at 07:30 Ondansetron HCl (Zofran) 4 mg PRN Q8HRS PRN IV NAUSEA/VOMITING; Start 05/11/17 at 07:30 Albuterol Sulfate (Ventolin Neb Soln) 2.5 mg PRN Q4HRS PRN NEB SHORTNESS OF BREATH; Start 05/11/17 at 07:30 Hydrochlorothiazide (Microzide) 12.5 mg DAILY PO Last administered on 09:55; Start 05/11/17 at 10:00; Stop 05/11/17 at 19:21; Status DC Polyethylene Glycol (miraLAX PACKET) 17 gm DAILY PO ; Start 05/11/17 at 16:00 Nicotine (Nicoderm Cq 21mg) 1 patch DAILY TD Last administered on 05/13/17 11: 22; Start 05/11/17 at 16:00 Hydrochlorothiazide (Microzide) 25 mg DAILY PO Last administered on 05/13/17 11:21; Start 05/12/17 at 09:00 Regadenoson (Lexiscan) 0.4 mg 1X ONCE IV Last administered on 05/12/17 07:45 ; Start 05/12/17 at 07:45; Stop 05/12/17 at 07:46; Status DC Atorvastatin Calcium (Lipitor) 40 mg QHS PO Last administered on 05/12/17 21: 15; Start 05/12/17 at 21:00 Lisinopril (Prinivil) 5 mg QHS PO Last administered on 05/12/17 21:17; Start 05/12/17 at 21:00 Sodium Chloride 1,000 ml @ 75 mls/hr [id number] IV Last administered on 06:32; Start 05/13/17 at 07:30 Zolpidem Tartrate (Ambien) 5 mg PRN QHS PRN PO INSOMNIA Last administered on 23:01; Start 05/12/17 at 21:45 Metoprolol Tartrate (Lopressor) 5 mg PRN Q6HRS PRN IVP ELEVATED BP, SEE COMMENTS Last administered on 05/13/17 06:42; Start 05/12/17 at 23:15 Lidocaine HCl 20 ml STK-MED ONCE .ROUTE ; Start 05/13/17 at 08:51; Stop at 08:52; Status DC Iohexol (Omnipaque 350 Mg/ml) 100 ml STK-MED ONCE .ROUTE ; Start 05/13/17 at 08: 51; Stop 05/13/17 at 08:52; Status DC Heparin Sodium/ Sodium Chloride 1,000 ml @ As Directed STK-MED ONCE .ROUTE ; Start 05/13/17 at 08:51; Stop 05/13/17 at 08:52; Status DC Nitroglycerin (Nitroglycerin) 200 mcg STK-MED ONCE .ROUTE ; Start 05/13/17 at 09 :20; Stop 05/13/17 at 09:21; Status DC Verapamil HCl (Verapamil) 5 mg STK-MED ONCE .ROUTE ; Start 05/13/17 at 09:20; Stop 05/13/17 at 09:21; Status DC Midazolam HCl (Versed) 2 mg STK-MED ONCE .ROUTE ; Start 05/13/17 at 09:21; Stop 05/13/17 at 09:22; Status DC Fentanyl Citrate (Fentanyl 2ml Vial) 100 mcg STK-MED ONCE .ROUTE ; Start at 09:21; Stop 05/13/17 at 09:22; Status DC Heparin Sodium (Porcine) (Heparin Sodium) 10,000 unit STK-MED ONCE .ROUTE ; Start 05/13/17 at 09:21; Stop 05/13/17 at 09:22; Status DC Metoprolol Tartrate (Lopressor) 50 mg BID PO Last administered on 05/13/17 11: 21; Start 05/13/17 at 09:45 Lisinopril (Prinivil) 10 mg QHS PO ; Start 05/13/17 at 21:00 Bivalirudin (Angiomax) 250 mg STK-MED ONCE IV ; Start 05/13/17 at 09:44; Stop at 09:45; Status DC Iohexol (Omnipaque 350 Mg/ml) 100 ml STK-MED ONCE .ROUTE ; Start 05/13/17 at 09: 53; Stop 05/13/17 at 09:54; Status DC Nitroglycerin (Nitroglycerin) 200 mcg 1X ONCE IART Last administered on 10:47; Start 05/13/17 at 10:00; Stop 05/13/17 at 10:01; Status DC Verapamil HCl (Verapamil) 2.5 mg 1X ONCE IART ; Start 05/13/17 at 10:00; Stop 05/13/17 at 10:01; Status DC Heparin Sodium (Porcine) (Heparin Sodium) 2,500 unit 1X ONCE IART Last administered on 05/13/17 10:49; Start 05/13/17 at 10:00; Stop 05/13/17 at 10:01 ; Status DC Heparin Sodium/ Sodium Chloride 1,000 unit 1X ONCE IART Last administered on 10:46; Start 05/13/17 at 10:00; Stop 05/13/17 at 10:01; Status DC Midazolam HCl (Versed) 1 mg 1X ONCE IV Last administered on 05/13/17 10:47; Start 05/13/17 at 10:00; Stop 05/13/17 at 10:01; Status DC Fentanyl Citrate (Fentanyl 2ml Vial) 50 mcg 1X ONCE IV Last administered on 10:48; Start 05/13/17 at 10:00; Stop 05/13/17 at 10:01; Status DC Iohexol (Omnipaque 350 Mg/ml) 100 ml 1X ONCE IART Last administered on 10:47; Start 05/13/17 at 10:00; Stop 05/13/17 at 10:01; Status DC Bivalirudin (Angiomax) 250 mg 1X ONCE IV Last administered on 05/13/17 10:48 ; Start 05/13/17 at 10:00; Stop 05/13/17 at 10:01; Status DC Lidocaine HCl 1 ml 1X ONCE IJ Last administered on 05/13/17 10:46; Start at 10:00; Stop 05/13/17 at 10:01; Status DC Aspirin (Rojas Aspirin) 325 mg STK-MED ONCE .ROUTE ; Start 05/13/17 at 10:26; Stop 05/13/17 at 10:27; Status DC Clopidogrel Bisulfate (Plavix) 75 mg STK-MED ONCE .ROUTE ; Start 05/13/17 at 10: 26; Stop 05/13/17 at 10:27; Status DC Clopidogrel Bisulfate (Plavix) 600 mg 1X ONCE PO Last administered on 10:49; Start 05/13/17 at 10:45; Stop 05/13/17 at 10:46; Status DC Aspirin (Rojas Aspirin) 325 mg 1X ONCE PO Last administered on 05/13/17 10:49 ; Start 05/13/17 at 10:45; Stop 05/13/17 at 10:46; Status DC Sodium Chloride 1,000 ml @ 75 mls/hr [id number] IV Last administered on 11:23; Start 05/13/17 at 11:03 Aspirin (Ecotrin) 325 mg DAILYWBKFT PO ; Start 05/14/17 at 08:00 Clopidogrel Bisulfate (Plavix) 75 mg DAILYWBKFT PO ; Start 05/14/17 at 08:00 Acetaminophen (Tylenol) 650 mg PRN Q6HRS PRN PO MILD PAIN / TEMP; Start at 11:15 Nitroglycerin (Nitrostat) 0.4 mg PRN Q5MIN PRN SL CHEST PAIN; Start 05/13/17 at 11:15 Vitals/I & O Vital Sign - Last 24 Hours 05/12/17 05/12/17 05/12/17 05/12/17 15:47 19:00 19:21 19:25 Temp 98.2 97.5 98.2 97.5 Pulse 83 76 Resp 20 16 18 B/P (MAP) 162/107 (125) 171/111 (131) Pulse Ox 99 97 99 O2 Delivery Room Air Room Air Room Air Room Air 05/12/17 05/12/17 05/12/17 05/12/17 19:37 21:17 21:18 22:06 Pulse 78 81 84 72 B/P (MAP) 171/111 176/100 176/100 186/106 (132) 05/12/17 05/12/17 05/13/17 05/13/17 22:59 23:31 01:14 03:00 Temp 97.3 98.4 97.3 98.4 Pulse 78 82 78 92 Resp 18 18 B/P (MAP) 165/109 (127) 165/109 151/92 (111) 179/91 (120) Pulse Ox 98 95 O2 Delivery Room Air Room Air 05/13/17 05/13/17 05/13/17 05/13/17 03:10 06:36 06:42 06:43 Pulse 84 89 89 Resp 18 B/P (MAP) 169/99 182/103 (129) 182/103 Pulse Ox 97 O2 Delivery Room Air 05/13/17 05/13/17 05/13/17 05/13/17 07:43 08:00 10:48 10:59 Pulse 83 Resp 18 14 14 Pulse Ox 97 99 99 O2 Delivery Room Air Room Air Nasal Cannula Nasal Cannula O2 Flow Rate 2.0 2.0 05/13/17 11:21 Pulse 86 B/P (MAP) 188/117 Intake and Output 05/12/17 05/12/17 05/13/17 14:59 22:59 06:59 Intake Total 1400 ml 0 ml Balance 1400 ml 0 ml BELKIS DIAMOND MD May 13, 2017 12:24
--- NOTE | 2017-05-13 14:06 | CARD ---
APPROVED REPORT Procedure(s) performed: 1. Left heart catheterization, selective coronary angiography via right reis sradial approach 2. Successful PCI/stent placement to the right coronary artery INDICATION The indication(s) include : Unstable angina, severe cardiomyopathy and positive stress test. PROCEDURE NARRATIVE After explaining the risks, benefits and alternative options, informed consent was obtained from lior ent. Patient was brought to the cardiac Professor Of Musicology and right wrist was prepped and draped in the usual fashion after confirming a positive modified Aryan's test. Arterial access was obtained in the rig t radial artery and a 6 Cymro sheath was inserted. 6 Cymro Adria catheter was used to perform nelson ective angiography of the left and right coronary arteries. Left ventricular end-diastolic pressure a nd transaortic gradients were measured. Left ventriculography was not performed due to recent noninva sive assessment. The following findings were noted. FINDINGS 1. Hemodynamics: Left ventricular end-diastolic pressure of 123mmHg. No pullback gradient across th e aortic valve. 2. Coronary angiography: a. The left main coronary artery arose from the left sinus of Valsalva, gave rise to the left anteri or descending and left circumflex arteries and did not show any significant stenosis. b. The left anterior descending artery showed 30% stenosis involving the proximal to midsegment. The lower division of the first diagonal branch which is a small-caliber vessel showed long 70-80% steno sis. c. The left circumflex artery showed 40% stenosis in the obtuse marginal branch. d. The right coronary artery was a large and dominant vessel arising from the right sinus of Valsalv a that showed 80% stenosis in the proximal to midsegment. INTERVENTION After initial unsuccessful attempts at obtaining good guide support using 6 Cymro JR4 guide catheter , this was achieved using a 6 Cymro AL 0.75 guide catheter. The stenosis in the proximal to midsegme nt of the right coronary artery was crossed with a 0.014 inch efish [place] guidewire. Initial attem pts to advance a stent across this lesion was unsuccessful due to tortuous nature of the vessel. With the help of support from a 6 Cymro guide liner inner catheter, 4.0 x 18 mm MultiLVoddler vision stent w as successfully deployed at high pressure of 18 dionisio. This was then postdilated with a 5.0 x 12 mm NC trek noncompliant balloon. Follow-up angiography showed resolution of the stenosis with YESSI-3 distal flow. Patient tolerated the procedure well. Hemostasis was achieved using TR band. There were no imm ediate complications. Conclusion 1. 80% stenosis involving a large caliber dominant right coronary artery 2. Successful complex PCI/stent placement to the right coronary artery. Medications Administered 1. Aspirin 325 mg daily 2. Plavix 75 mg daily for preferably one year 3. Repeat 2D echo in 3 months to evaluate the need for AICD implantation.
[2017-05-13] MEDS: ATORVASTATIN CALCIUM 40 MG TABLET. PO SCH (20:03)
[2017-05-13] MEDS ORDERED: LISINOPRIL 10 MG TABLET PO SCH (21:00)
[2017-05-13] MEDS: ZOLPIDEM 5 MG TABLET. PO PRN (22:39)
[2017-05-14] MEDS: IV 1/2 NORMAL SALINE 1,000 ML IV SCH (00:23)
[2017-05-14 03:00] VITALS: BP 181/111
[2017-05-14] MEDS: METOPROLOL TARTRATE 5 MG/5 ML VIAL. IVP PRN (03:10)
[2017-05-14 07:00] VITALS: BP 181/110
[2017-05-14] MEDS: METOPROLOL TART IMMED RELEASE 25 MG TABLET. PO SCH (08:19)
[2017-05-14] MEDS: hydroCHLOROthiazide 12.5 MG CAPSULE PO SCH (08:19)
[2017-05-14] MEDS: CLOPIDOGREL BISULFATE 75 MG TABLET PO SCH (08:20)
[2017-05-14] MEDS: ASPIRIN ENTERIC COATED 325 MG TABLET.DR. PO SCH (08:20)
[2017-05-14] MEDS: hydrALAZINE 20 MG/ML VIAL. IVP PRN (08:20)
[2017-05-14] MEDS: NICOTINE 21MG PATCH. TD SCH (08:31)
[2017-05-14] MEDS: POLYETHYLENE GLYCOL 3350 17 GM PACKET. PO SCH (09:00)
[2017-05-14] MEDS: IV NORMAL SALINE 1000ML BAG 1,000 ML IV SCH (10:10)
[2017-05-14 10:51] VITALS: BP 165/80
[2017-05-14] MEDS: LABETALOL 20 MG/4 ML DISP.SYRIN. IVP PRN (11:46)
--- NOTE | 2017-05-14 12:02 | PDOC ---
CARDIO Progress Notes Date and Time Date of Service 05/14/2017 Time of Evaluation 1202 Subjective Subjective: No Chest Pain, No shortness of breath, No Palpitations, No Dizziness Vitals Vitals Vital Signs Date Time Temp Pulse Resp B/P (MAP) Pulse Ox O2 Delivery O2 Flow Rate FiO2 05/14/17 11:46 86 165/80 05/14/17 10:51 98.1 20 96 Room Air 98.1 05/14/17 07:00 90.0 Weight Weight [ ] Input and Output Intake and Output Intake and Output 05/14/17 07:00 Intake Total 840 ml Balance 840 ml Intake Oral 840 ml # Voids 3 Microbiology Micro Microbiology 05/11/17 Blood Culture - Preliminary, Resulted NO GROWTH AFTER 3 DAYS Case Discussion Case Discussed with: Family Continued Hospitalization Reason for continued Hospitali: other (uncontrolled HTN) Physical Exam HEENT: Neck Supple W Full Motion Chest: Symmetric LUNGS: Clear to Auscultation Heart: S1S2, RRR, other (tele: SR) Abdomen: Soft N/T Extremities: 2+ Dorsalis Pedis, 2+ Posterior Tibial, Other (right radial arteriotomy C/D/I; radial pulse 2+; drop hammer mechanic strong; cap refill brisk) Neurology: alert, oriented, follow commands Assessment Assessment 1. NSTEMI BMS to RCA yesterday = DAPT for at least 30 days and preferably one year continue BB, ACEI, statin therapy 2. cardiomyopathy, ischemic LVEF ~ 26% on MPI; consider repeating echo in 3 months if patient can afford financially changed to carvedilol and increase ACEI no LifeVest as no financial means 3. malignant HTN not controlled changed to carvedilol and increase ACEI suspect BP impacted by fast food and snacks brought in by family 5. mixed HLD continue high dose statin therapy NORIS CLAYTON SENIOR HYDROGEOLOGIST May 14, 2017 12:01
--- NOTE | 2017-05-14 13:18 | PDOC ---
PROGRESS NOTES Chief Complaint Chief Complaint 1. Hypertensive emergency present on admission: 2. apical septal ischemia, s/p cardiac cath, PCI to RCA needs outpatient followup. 4. Inguinal hernia:not incarcerated/strangulated History of Present Illness History of Present Illness no chest pain Asleep BP still high 180s systolic HR 90s PLAn: Kam Velazco - he will adjust BP meds Dw LENI Mancera Follow cards recs Vitals Vitals Vital Signs Date Time Temp Pulse Resp B/P (MAP) Pulse Ox O2 Delivery O2 Flow Rate FiO2 05/14/17 11:46 86 165/80 05/14/17 10:51 98.1 20 96 Room Air 98.1 05/14/17 07:00 90.0 Physical Exam General: Alert, Oriented X3, Cooperative, No acute distress Heart: Regular rate, Normal S1, Normal S2 Lungs: Clear Abdomen: Normal bowel sounds, Other (slight tenderness in the lower abdomen) Extremities: No clubbing Skin: No rashes Review of Systems Review of Systems asleep - did not obtain Assessment and Plan Assessmemt and Plan Problems Medical Problems: (1) Abdominal pain Status: Acute (2) Hypertensive emergency Status: Acute Problems: Comment Review of Relevant I have reviewed the following items kar (where applicable) has been applied. Labs Laboratory Tests Test 05/13/17 11:45 White Blood Count 10.0 x10^3/uL (4.0-11.0) Red Blood Count 6.22 x10^6/uL (4.30-5.70) Hemoglobin 19.1 g/dL (13.0-17.5) Hematocrit 56.0 % (39.0-53.0) Mean Corpuscular Volume 90 fL (79-100) Mean Corpuscular Hemoglobin 31 pg (25-35) Mean Corpuscular Hemoglobin Concent 34 g/dL (31-37) Red Cell Distribution Width 13.4 % (11.5-14.5) Platelet Count 231 x10^3/uL (140-400) Neutrophils (%) (Auto) 77 % (31-73) Lymphocytes (%) (Auto) 13 % (24-48) Monocytes (%) (Auto) 8 % (0-9) Eosinophils (%) (Auto) 2 % (0-3) Basophils (%) (Auto) 1 % (0-3) Neutrophils # (Auto) 7.8 x10^3uL (1.8-7.7) Lymphocytes # (Auto) 1.3 x10^3/uL (1.0-4.8) Monocytes # (Auto) 0.8 x10^3/uL (0.0-1.1) Eosinophils # (Auto) 0.2 x10^3/uL (0.0-0.7) Basophils # (Auto) 0.1 x10^3/uL (0.0-0.2) Sodium Level 137 mmol/L (136-145) Potassium Level 4.1 mmol/L (3.5-5.1) Chloride Level 100 mmol/L (98-107) Carbon Dioxide Level 27 mmol/L (21-32) Anion Gap 10 (6-14) Blood Urea Nitrogen 13 mg/dL (8-26) Creatinine 1.1 mg/dL (0.7-1.3) Estimated GFR (Cockcroft-Gault) 72.4 Glucose Level 134 mg/dL (70-99) Calcium Level 9.3 mg/dL (8.5-10.1) Microbiology 05/11/17 Blood Culture - Preliminary, Resulted NO GROWTH AFTER 3 DAYS Medications Current Medications Iohexol (Omnipaque 300 Mg/ml) 75 ml 1X ONCE IV ; Start 05/11/17 at 02:00; Stop 05/11/17 at 02:01; Status DC Info (Do NOT chart on this entry -- for MONITORING) 1 each PRN DAILY PRN MC SEE COMMENTS; Start 05/11/17 at 01:30; Stop 05/13/17 at 01:29; Status DC Clonidine HCl (Catapres) 0.2 mg 1X ONCE PO Last administered on 05/11/17 01: 58; Start 05/11/17 at 02:00; Stop 05/11/17 at 02:01; Status DC Nicardipine HCl 50 mg/Sodium Chloride 270 ml @ 0 mls/hr CONT PRN IV SEE I/O RECORD Last administered on 05/11/17 04:22; Start 05/11/17 at 04:15 Aspirin (Children'S Aspirin) 324 mg 1X ONCE PO Last administered on 05/11/17 04:46; Start 05/11/17 at 05:00; Stop 05/11/17 at 05:01; Status DC Sodium Chloride 1,000 ml @ 1,000 mls/hr 1X ONCE IV Last administered on 04:50; Start 05/11/17 at 05:00; Stop 05/11/17 at 05:59; Status DC Morphine Sulfate 4 mg PRN Q2HR PRN IV SEVERE PAIN; Start 05/11/17 at 06:00 Metoprolol Tartrate (Lopressor) 25 mg BID PO Last administered on 05/12/17 21: 18; Start 05/11/17 at 09:00; Stop 05/13/17 at 14:04; Status DC Acetaminophen (Tylenol) 325 mg PRN Q6HRS PRN PO MILD PAIN / TEMP Last administered on 05/11/17 11:23; Start 05/11/17 at 07:30 Acetaminophen/ Hydrocodone Bitart (Lortab 5/325) 1 tab PRN Q6HRS PRN PO MODERATE TO SEVERE PAIN Last administered on 05/13/17 19:30; Start 05/11/17 at 07:30 Hydralazine HCl (Apresoline) 10 mg PRN Q4HRS PRN IVP ELEVATED BP, SEE COMMENTS Last administered on 05/14/17 08:20; Start 05/11/17 at 07:30 Ondansetron HCl (Zofran) 4 mg PRN Q8HRS PRN IV NAUSEA/VOMITING; Start 05/11/17 at 07:30 Albuterol Sulfate (Ventolin Neb Soln) 2.5 mg PRN Q4HRS PRN NEB SHORTNESS OF BREATH; Start 05/11/17 at 07:30 Hydrochlorothiazide (Microzide) 12.5 mg DAILY PO Last administered on 09:55; Start 05/11/17 at 10:00; Stop 05/11/17 at 19:21; Status DC Polyethylene Glycol (miraLAX PACKET) 17 gm DAILY PO ; Start 05/11/17 at 16:00 Nicotine (Nicoderm Cq 21mg) 1 patch DAILY TD Last administered on 05/14/17 08: 31; Start 05/11/17 at 16:00 Hydrochlorothiazide (Microzide) 25 mg DAILY PO Last administered on 05/14/17 08:19; Start 05/12/17 at 09:00 Regadenoson (Lexiscan) 0.4 mg 1X ONCE IV Last administered on 05/12/17 07:45 ; Start 05/12/17 at 07:45; Stop 05/12/17 at 07:46; Status DC Atorvastatin Calcium (Lipitor) 40 mg QHS PO Last administered on 05/13/17 20: 03; Start 05/12/17 at 21:00 Lisinopril (Prinivil) 5 mg QHS PO Last administered on 05/12/17 21:17; Start 05/12/17 at 21:00; Stop 05/13/17 at 14:02; Status DC Sodium Chloride 1,000 ml @ 75 mls/hr [id number] IV Last administered on 19:30; Start 05/13/17 at 07:30 Zolpidem Tartrate (Ambien) 5 mg PRN QHS PRN PO INSOMNIA Last administered on 22:39; Start 05/12/17 at 21:45 Metoprolol Tartrate (Lopressor) 5 mg PRN Q6HRS PRN IVP ELEVATED BP, SEE COMMENTS Last administered on 05/14/17 03:10; Start 05/12/17 at 23:15; Stop at 11:52; Status DC Lidocaine HCl 20 ml STK-MED ONCE .ROUTE ; Start 05/13/17 at 08:51; Stop at 08:52; Status DC Iohexol (Omnipaque 350 Mg/ml) 100 ml STK-MED ONCE .ROUTE ; Start 05/13/17 at 08: 51; Stop 05/13/17 at 08:52; Status DC Heparin Sodium/ Sodium Chloride 1,000 ml @ As Directed STK-MED ONCE .ROUTE ; Start 05/13/17 at 08:51; Stop 05/13/17 at 08:52; Status DC Nitroglycerin (Nitroglycerin) 200 mcg STK-MED ONCE .ROUTE ; Start 05/13/17 at 09 :20; Stop 05/13/17 at 09:21; Status DC Verapamil HCl (Verapamil) 5 mg STK-MED ONCE .ROUTE ; Start 05/13/17 at 09:20; Stop 05/13/17 at 09:21; Status DC Midazolam HCl (Versed) 2 mg STK-MED ONCE .ROUTE ; Start 05/13/17 at 09:21; Stop 05/13/17 at 09:22; Status DC Fentanyl Citrate (Fentanyl 2ml Vial) 100 mcg STK-MED ONCE .ROUTE ; Start at 09:21; Stop 05/13/17 at 09:22; Status DC Heparin Sodium (Porcine) (Heparin Sodium) 10,000 unit STK-MED ONCE .ROUTE ; Start 05/13/17 at 09:21; Stop 05/13/17 at 09:22; Status DC Metoprolol Tartrate (Lopressor) 50 mg BID PO Last administered on 05/14/17 08: 19; Start 05/13/17 at 09:45; Stop 05/14/17 at 11:52; Status DC Lisinopril (Prinivil) 10 mg QHS PO Last administered on 05/13/17 20:03; Start 05/13/17 at 21:00; Stop 05/14/17 at 11:52; Status DC Bivalirudin (Angiomax) 250 mg STK-MED ONCE IV ; Start 05/13/17 at 09:44; Stop at 09:45; Status DC Iohexol (Omnipaque 350 Mg/ml) 100 ml STK-MED ONCE .ROUTE ; Start 05/13/17 at 09: 53; Stop 05/13/17 at 09:54; Status DC Nitroglycerin (Nitroglycerin) 200 mcg 1X ONCE IART Last administered on 10:47; Start 05/13/17 at 10:00; Stop 05/13/17 at 10:01; Status DC Verapamil HCl (Verapamil) 2.5 mg 1X ONCE IART ; Start 05/13/17 at 10:00; Stop 05/13/17 at 10:01; Status DC Heparin Sodium (Porcine) (Heparin Sodium) 2,500 unit 1X ONCE IART Last administered on 05/13/17 10:49; Start 05/13/17 at 10:00; Stop 05/13/17 at 10:01 ; Status DC Heparin Sodium/ Sodium Chloride 1,000 unit 1X ONCE IART Last administered on 10:46; Start 05/13/17 at 10:00; Stop 05/13/17 at 10:01; Status DC Midazolam HCl (Versed) 1 mg 1X ONCE IV Last administered on 05/13/17 10:47; Start 05/13/17 at 10:00; Stop 05/13/17 at 10:01; Status DC Fentanyl Citrate (Fentanyl 2ml Vial) 50 mcg 1X ONCE IV Last administered on 10:48; Start 05/13/17 at 10:00; Stop 05/13/17 at 10:01; Status DC Iohexol (Omnipaque 350 Mg/ml) 100 ml 1X ONCE IART Last administered on 10:47; Start 05/13/17 at 10:00; Stop 05/13/17 at 10:01; Status DC Bivalirudin (Angiomax) 250 mg 1X ONCE IV Last administered on 05/13/17 10:48 ; Start 05/13/17 at 10:00; Stop 05/13/17 at 10:01; Status DC Lidocaine HCl 1 ml 1X ONCE IJ Last administered on 05/13/17 10:46; Start at 10:00; Stop 05/13/17 at 10:01; Status DC Aspirin (Rojas Aspirin) 325 mg STK-MED ONCE .ROUTE ; Start 05/13/17 at 10:26; Stop 05/13/17 at 10:27; Status DC Clopidogrel Bisulfate (Plavix) 75 mg STK-MED ONCE .ROUTE ; Start 05/13/17 at 10: 26; Stop 05/13/17 at 10:27; Status DC Clopidogrel Bisulfate (Plavix) 600 mg 1X ONCE PO Last administered on 10:49; Start 05/13/17 at 10:45; Stop 05/13/17 at 10:46; Status DC Aspirin (Rojas Aspirin) 325 mg 1X ONCE PO Last administered on 05/13/17 10:49 ; Start 05/13/17 at 10:45; Stop 05/13/17 at 10:46; Status DC Sodium Chloride 1,000 ml @ 75 mls/hr [id number] IV Last administered on 11:23; Start 05/13/17 at 11:03 Aspirin (Ecotrin) 325 mg DAILYWBKFT PO Last administered on 05/14/17 08:20; Start 05/14/17 at 08:00 Clopidogrel Bisulfate (Plavix) 75 mg DAILYWBKFT PO Last administered on 08:20; Start 05/14/17 at 08:00 Acetaminophen (Tylenol) 650 mg PRN Q6HRS PRN PO MILD PAIN / TEMP; Start at 11:15 Nitroglycerin (Nitrostat) 0.4 mg PRN Q5MIN PRN SL CHEST PAIN; Start 05/13/17 at 11:15 Labetalol HCl (Normodyne) 10 mg PRN Q2HR PRN IVP HYPERTENSION, SEE COMMENTS Last administered on 05/14/17 11:46; Start 05/14/17 at 08:30 Verapamil HCl (Verapamil) 5 mg STK-MED ONCE .ROUTE ; Start 05/13/17 at 10:00; Stop 05/14/17 at 08:57; Status DC Lisinopril (Prinivil) 20 mg QHS PO ; Start 05/14/17 at 21:00 Carvedilol (Coreg) 25 mg BIDWMEALS PO ; Start 05/14/17 at 17:00 Vitals/I & O Vital Sign - Last 24 Hours 05/13/17 05/13/17 05/13/17 05/13/17 13:15 13:15 13:30 14:00 Temp 97.7 97.7 Pulse 82 84 84 Resp 18 18 18 18 B/P (MAP) 184/112 (136) 178/95 (122) 181/85 (117) Pulse Ox 99 98 96 95 O2 Delivery Room Air Room Air Room Air Room Air O2 Flow Rate 2.0 05/13/17 05/13/17 05/13/17 05/13/17 14:15 14:29 15:00 16:00 Pulse 84 80 76 Resp 19 18 18 B/P (MAP) 167/95 (119) 159/84 (109) 151/80 (103) Pulse Ox 94 95 92 O2 Delivery Room Air Room Air Room Air O2 Flow Rate 2.0 05/13/17 05/13/17 05/13/17 05/13/17 17:00 18:00 19:01 19:20 Temp 98.1 98.1 Pulse 72 78 85 Resp 18 18 18 B/P (MAP) 158/79 (105) 163/87 (112) 174/93 (120) Pulse Ox 93 95 97 O2 Delivery Room Air Room Air Room Air Room Air 05/13/17 05/13/17 05/13/17 05/13/17 19:30 20:03 20:04 20:30 Pulse 85 85 Resp 18 16 B/P (MAP) 174/93 174/93 Pulse Ox 97 97 O2 Delivery Room Air Room Air 05/13/17 05/14/17 05/14/17 05/14/17 22:37 03:00 03:10 07:00 Temp 98.3 98.3 97.5 98.3 98.3 97.5 Pulse 77 82 80 88 Resp 18 18 20 B/P (MAP) 152/95 (114) 181/111 (134) 181/111 181/110 (133) Pulse Ox 95 98 O2 Delivery Room Air Room Air Room Air O2 Flow Rate 90.0 05/14/17 05/14/17 05/14/17 05/14/17 08:19 08:20 10:51 11:46 Temp 98.1 98.1 Pulse 88 88 86 86 Resp 20 B/P (MAP) 181/110 181/110 165/80 (108) 165/80 Pulse Ox 96 O2 Delivery Room Air Intake and Output 05/13/17 05/13/17 05/14/17 15:00 23:00 07:00 Intake Total 480 ml 360 ml 0 ml Balance 480 ml 360 ml 0 ml CATRACHO LEES MD May 14, 2017 13:18
[2017-05-14] MEDS: HYDROcodone/APAP 5/325MG 1 TAB TABLET PO PRN ×2 (13:22→21:42)
[2017-05-14 15:24] VITALS: BP 167/82
[2017-05-14] MEDS: CARVEDILOL 12.5 MG TABLET. PO SCH (18:21)
[2017-05-14 19:50] VITALS: BP 162/88
[2017-05-14] MEDS: ATORVASTATIN CALCIUM 40 MG TABLET. PO SCH (20:46)
[2017-05-14] MEDS ORDERED: LISINOPRIL 20 MG TABLET PO SCH (21:00)
[2017-05-14] MEDS: ZOLPIDEM 5 MG TABLET. PO PRN (21:42)
[2017-05-14 23:59] VITALS: BP 164/99
[2017-05-15 02:18] VITALS: BP 166/92
[2017-05-15] MEDS: LABETALOL 20 MG/4 ML DISP.SYRIN. IVP PRN (02:55)
[2017-05-15 07:30] VITALS: BP 182/98
[2017-05-15] MEDS: CARVEDILOL 12.5 MG TABLET. PO SCH (08:00)
[2017-05-15] MEDS: NICOTINE 21MG PATCH. TD SCH (08:02)
[2017-05-15] MEDS: hydrALAZINE 20 MG/ML VIAL. IVP PRN (08:03)
[2017-05-15] MEDS: CLOPIDOGREL BISULFATE 75 MG TABLET PO SCH (08:03)
[2017-05-15] MEDS: hydroCHLOROthiazide 12.5 MG CAPSULE PO SCH (08:03)
[2017-05-15] MEDS: ASPIRIN ENTERIC COATED 325 MG TABLET.DR. PO SCH (08:04)
[2017-05-15] MEDS: amLODIPine BESYLATE 10 MG TABLET PO SCH ×2 (08:07→08:08)
[2017-05-15] MEDS: POLYETHYLENE GLYCOL 3350 17 GM PACKET. PO SCH (08:08)
[2017-05-15 08:30] VITALS: BP 160/90
[2017-05-15 09:30] VITALS: BP 118/66
--- NOTE | 2017-05-15 10:08 | PDOC ---
CARDIO Progress Notes Date and Time Date of Service 05/15/2017 Time of Evaluation 1003 Subjective Subjective: No Chest Pain, No shortness of breath, No Palpitations, No Dizziness Vitals Vitals Vital Signs Date Time Temp Pulse Resp B/P (MAP) Pulse Ox O2 Delivery O2 Flow Rate FiO2 05/15/17 08:08 94 182/98 05/15/17 08:00 Room Air 05/15/17 07:30 98.1 19 95 98.1 05/14/17 07:00 90.0 Weight Weight [ ] Input and Output Intake and Output Intake and Output 05/15/17 07:00 Intake Total 2830 ml Balance 2830 ml Intake Oral 830 ml IV Total 2000 ml Microbiology Micro Microbiology 05/11/17 Blood Culture - Preliminary, Resulted NO GROWTH AFTER 4 DAYS Case Discussion Case Discussed with: Family Continued Hospitalization Reason for continued Hospitali: other (uncontrolled HTN) Physical Exam HEENT: Neck Supple W Full Motion Chest: Symmetric LUNGS: Clear to Auscultation Heart: S1S2, RRR, other (tele: SR) Abdomen: Soft N/T Extremities: 2+ Dorsalis Pedis, 2+ Posterior Tibial, Other (right radial arteriotomy C/D/I; radial pulse 2+; photographers' model strong; cap refill brisk) Neurology: alert, oriented, follow commands Assessment Assessment 1. NSTEMI BMS to RCA 05/13/2017 = DAPT for at least 30 days and preferably one year continue BB, ACEI, statin therapy 2. cardiomyopathy, ischemic LVEF ~ 26% on MPI; LVEF ~ 45% on echo; consider repeating echo in 3 months if patient can afford financially changed to carvedilol and increase ACEI LifeVest for prevention of SCD not clearly indicated here and no financial means to pay for this have discussed reducing weight lifting regimen due to CMP 3. malignant HTN control poor add amlodipine continue BB, ACEI have discussed dietary changes including low Na diet 5. mixed HLD continue high dose statin therapy NORIS CLAYTON APRN May 15, 2017 10:08
[2017-05-15 10:25] VITALS: BP 134/78
[2017-05-15] MEDS ORDERED: ATOR40TA PO (10:34)
[2017-05-15] MEDS ORDERED: CLOP75TA57 PO (10:34)
[2017-05-15] MEDS ORDERED: ASPI325T8 PO (10:34)
[2017-05-15] MEDS ORDERED: CARV25TA PO (10:34)
[2017-05-15] MEDS ORDERED: HYDR12.53 PO (10:34)
[2017-05-15] MEDS ORDERED: LISI-334 PO (10:34)
--- NOTE | 2017-05-15 11:48 | PDOC3 ---
Discharge Summary Visit Information Date of Admission: May 11, 2017 Date of Discharge: May 15, 2017 Admitting Diagnosis Comment: 1. Hypertensive emergency present on admission: 2. apical septal ischemia, s/p cardiac cath, PCI to RCA needs outpatient followup. 4. Inguinal hernia:not incarcerated/strangulated Final Diagnosis Problems Medical Problems: (1) Abdominal pain Status: Acute (2) Hypertensive emergency Status: Acute Brief Hospital Course Allergies Allergies Coded Allergies Type Severity Reaction Last Updated Verified No Known Drug Allergies 05/11/17 No Vital Signs Vital Signs Date Time Temp Pulse Resp B/P (MAP) Pulse Ox O2 Delivery O2 Flow Rate FiO2 05/15/17 10:25 98.1 87 18 134/78 (96) 95 Room Air 98.1 05/14/17 07:00 90.0 Brief Hospital Course Mr. Wick is a 47 old [male admitted for hTN urgency and CP, needed to have PCI to RCA, Needed tos tart quite a few antihypertensives to control BP. RX provided. See MAR (5 diff meds). To ff p cards 4 weeks MEds: Ari inhib, BB, statin, ASA 325, plavix, norvasc Dispo: home COnsults: cards Proc: [facility] Discharge Information Condition at Discharge: Improved, Stable Follow Up: Weeks (4 weeks cards) Disposition/Orders: D/C to Home CATRACHO LEES MD May 15, 2017 11:48
== END 2017-05-15 12:30 | disposition home or self-care (01) | DRG 249 ==
LOC: ER 00:51 → 1 WEST ICU 04:06 → 2 NORTH 11:43
PROVIDERS: ADMIT Internal Medicine; ATTEND Internal Medicine
PROC: 02703DZ Dilation of Coronary Artery, One Artery with Intraluminal Device, Percutaneous Approach (ICD-10-PCS; principal; 2017-05-13)
PROC: 4A023N7 Measurement of Cardiac Sampling and Pressure, Left Heart, Percutaneous Approach (ICD-10-PCS; 2017-05-13)
PROC: B2151ZZ Fluoroscopy of Left Heart using Low Osmolar Contrast (ICD-10-PCS; 2017-05-13)
PROC: B2111ZZ Fluoroscopy of Multiple Coronary Arteries using Low Osmolar Contrast (ICD-10-PCS; 2017-05-13)
DX: I21.4 Non-ST elevation (NSTEMI) myocardial infarction (principal); I16.1 Hypertensive emergency; E78.2 Mixed hyperlipidemia; I10 Essential (primary) hypertension; I25.5 Ischemic cardiomyopathy; K40.90 Unilateral inguinal hernia, without obstruction or gangrene, not specified as recurrent; Z82.49 Family history of ischemic heart disease and other diseases of the circulatory system; Z95.5 Presence of coronary angioplasty implant and graft; R91.1 Solitary pulmonary nodule
CPT/HCPCS: 36415; 71010; 74176; 78452; 80048; 80053; 80061; 81001; 83605; 83690; 84484; 85027; 87040; 87641; 92928; 93005; 93017; 93306; 93458; 93975; 94250; 94760; 96365; 96374; 96375; 96376; A9500; C1725; C1769; C1877; C1887; C1892; J0360; J0583; J2250; J2785; J3010; J3490; J7030; J7050; Q9967; 99291-25

== ENCOUNTER 2020-08-21 08:48 | Emergency (ER) | payer MEDICAID ==
[~2020-08-21] VITALS: Ht 182.9 cm; Wt 109.0 kg
[~2020-08-21 08:48] MED LIST: ASPI325T8 PO; ATOR40TA PO; CARV25TA PO; CLOP75TA57 PO; HYDR12.575 PO; LISI-334 PO
--- NOTE | 2020-08-21 09:23 | EKG ---
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
--- NOTE | 2020-08-21 09:50 | RAD ---
PORTABLE CHEST 1V History: Chest pain, fever, shortness of breath Comparison: June 10, 2017 Findings: Single view of the chest is submitted. Pericardial cardiac silhouette is again enlarged. There is some subtle airspace opacity of the bilateral lung bases. There is no dependent pleural fluid or pneumothorax. Impression: 1. There is mild bibasilar airspace opacity which may be due to infiltrates, edema, or atelectasis. 2. There is again enlargement of the pericardial cardiac silhouette. Electronically signed by: Marcell Tinoco MD (08/21/2020 9:48 AM) [id number]
[2020-08-21 11:01] LABS: BASO # 0.1 x10^3/uL (0.0-0.2); BASO % 1 % (0-3); EOS # 0.4 x10^3/uL (0.0-0.7); EOS % 4 % (0-3); HEMATOCRIT 45.7 % (39.0-53.0); HEMOGLOBIN 15.5 g/dL (13.0-17.5); LYMPH # 1.9 x10^3/uL (1.0-4.8); LYMPH % 18 % (24-48); MEAN CORPUSCULAR HEMOGLOBIN 31 pg (25-35); MEAN CORPUSCULAR HGB CONC 34 g/dL (31-37); MEAN CORPUSCULAR VOLUME 92 fL (79-100); MONO # 0.8 x10^3/uL (0.0-1.1); MONO % 7 % (0-9); NEUT # 7.7 x10^3/uL (1.8-7.7); NEUT % 71 % (31-73); PLATELET COUNT 208 x10^3/uL (140-400); RED BLOOD COUNT 4.98 x10^6/uL (4.30-5.70); RED CELL DISTRIBUTION WIDTH 13.9 % (11.5-14.5); WHITE BLOOD COUNT 10.9 x10^3/uL (4.0-11.0)
[2020-08-21 11:01] LABS: BILIRUBIN,URINE NEGATIVE (NEG); CLARITY,URINE CLEAR; COLOR,URINE YELLOW; NITRITE,URINE NEGATIVE (NEG); PROTEIN,URINE 100 mg/dL (NEG-TRACE)
[2020-08-21 11:02] LABS: CALCIUM 8.5 mg/dL (8.5-10.1); CREATININE 1.3 mg/dL (0.7-1.3); GFR 58.9; POTASSIUM 4.1 mmol/L (3.5-5.1)
[2020-08-21 11:11] LABS: BACTERIA,URINE FEW /HPF (0-FEW); HYALINE CASTS, URINE FEW /HPF; SQUAMOUS EPITHELIAL CELL,UR OCC /LPF
[2020-08-21 11:12] LABS: SPERM,URINE PRESENT /HPF
[2020-08-21 11:17] LABS: ALBUMIN/GLOBULIN RATIO 0.9 (1.0-1.7); MAGNESIUM 2.2 mg/dL (1.8-2.4); TOTAL BILIRUBIN 0.4 mg/dL (0.2-1.0); TOTAL PROTEIN 6.5 g/dL (6.4-8.2)
[2020-08-21 11:55] LABS: PROTHROMBIN TIME PATIENT 13.4 SEC (11.7-14.0)
[2020-08-21] MEDS ORDERED: AMPICILLIN/SULBACTAM 3 GM in IV NORMAL SALINE 100ML 100 ML IV ONE (12:00)
--- NOTE | 2020-08-21 12:13 | PHYS DOC ---
Past Medical History Past Medical History: High Cholesterol, Heart Disease, Hypertension, [place] Additional Past Medical Histor: HERNIA, EF 10% Past Surgical History: No Surgical History Smoking Status: Former Smoker Additional Information: FORMER SMOKER X3-4YRS Alcohol Use: None Drug Use: Marijuana General Adult EDM: Chief Complaint: CHEST PAIN HPI: HPI: Patient is a 50 year old male who was brought here for evaluation due to chest pain, heaviness and pressure in nature off and on for a month. Patient had extensive coronary disease, EF of 10%, history of drug abuse. 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 Patient also complained of right lower dental pain and swelling that he is having this morning. Patient has history of chronic left inguinal hernia that has been bothering him, he said he is in the process of getting a general surgeon to evaluate his inguinal hernia. Patient denies any nausea vomiting. Patient denies any cough or fever. Review of Systems: Review of Systems: Constitutional: Denies fever or chills. [] Eyes: Denies change in visual acuity. [] HENT: Denies nasal congestion or sore throat. Positive for dental pain Respiratory: Denies cough or shortness of breath. [] Cardiovascular: Positive for chest pain, no edema. GI: Denies abdominal pain, nausea, vomiting, bloody stools or diarrhea. [] : Denies dysuria. [] Musculoskeletal: Denies back pain or joint pain. [] Integument: Denies rash. [] Neurologic: Denies headache, focal weakness or sensory changes. [] Endocrine: Denies polyuria or polydipsia. [] Lymphatic: Denies swollen glands. [] Psychiatric: Denies depression or anxiety. [] Heart Score: HEART Score for Chest Pain: HEART Score for Chest Pain Response (Comments) Value History Moderately Suspicious 1 ECG Nonspecific Repolarizatio 1 Age >45 - < 65 1 Risk Factors >3 Risk Factors or Hx CAD 2 Troponin >1-<3x Normal Limit 1 Total 6 Risk Factors: Risk Factors: DM, Current or recent (<one month) smoker, HTN, HLP, family history of CAD, obesity. Risk Scores: Score 0 - 3: 2.5% MACE over next 6 weeks - Discharge Home Score 4 - 6: 20.3% MACE over next 6 weeks - Admit for Clinical Observation Score 7 - 10: 72.7% MACE over next 6 weeks - Early Invasive Strategies Current Medications: Current Medications Medications (Trade) Dose Ordered Sig/[facility] Start Time Stop Time Status Last Admin Dose Admin Ampicillin Sodium/ Sulbactam Sodium 3 gm/Sodium Chloride 100 ml @ 200 mls/hr 1X ONCE 08/21/20 12:00 08/21/20 12:29 08/21/20 12:07 200 MLS/HR Allergies: Allergies: Allergies Coded Allergies Type Severity Reaction Last Updated Verified No Known Drug Allergies 05/11/17 No Physical Exam: PE: Constitutional: Well developed, well nourished, no acute distress, non-toxic a ppearance. [] HENT: Normocephalic, atraumatic, bilateral external ears normal, oropharynx moist, no oral exudates, nose normal. RIGHT LOWER 1ST AND 2ND MOLARS WITH CAVITIES, SWELLING AROUND GUMLINE. Eyes: PERRLA, EOMI, conjunctiva normal, no discharge. [] Neck: Normal range of motion, no tenderness, supple, no stridor. [] Cardiovascular:Heart rate regular rhythm, no murmur [] Lungs & Thorax: Bilateral breath sounds clear to auscultation [] Abdomen: Bowel sounds normal, soft, no tenderness, no masses, no pulsatile masses. There is reducible left inguinal hernia, tender to palpation. Skin: Warm, dry, no erythema, no rash. [] Back: No tenderness, no CVA tenderness. [] Extremities: No tenderness, no cyanosis, no clubbing, ROM intact, no edema. [] Neurologic: Alert and oriented X 3, normal motor function, normal sensory function, no focal deficits noted. [] Psychologic: Affect normal, judgement normal, mood normal. [] Current Patient Data: Labs: Laboratory Tests Test 08/21/20 10:40 08/21/20 10:45 08/21/20 10:50 08/21/20 11:35 Sodium Level 136 mmol/L (136-145) Potassium Level 4.1 mmol/L (3.5-5.1) Chloride Level 101 mmol/L (98-107) Carbon Dioxide Level 30 mmol/L (21-32) Anion Gap 5 (6-14) L Blood Urea Nitrogen 15 mg/dL (8-26) Creatinine 1.3 mg/dL (0.7-1.3) Estimated GFR (Cockcroft-Gault) 58.9 BUN/Creatinine Ratio 12 (6-20) Glucose Level 166 mg/dL (70-99) H Calcium Level 8.5 mg/dL (8.5-10.1) Magnesium Level 2.2 mg/dL (1.8-2.4) Total Bilirubin 0.4 mg/dL (0.2-1.0) Aspartate Amino Transferase (AST) 18 U/L (15-37) Alanine Aminotransferase (ALT) 26 U/L (16-63) Alkaline Phosphatase 63 U/L (46-116) Troponin I Quantitative 0.099 ng/mL (0.000-0.055) MU-Leg-O-Type Natriuretic Peptide 5672 pg/mL (0-124) H Total Protein 6.5 g/dL (6.4-8.2) Albumin 3.0 g/dL (3.4-5.0) L Albumin/Globulin Ratio 0.9 (1.0-1.7) L Lipase 90 U/L (73-393) Urine Collection Type Void Urine Color Yellow Urine Clarity Clear Urine pH 6.0 (<5.0-8.0) Urine Specific [place] 1.015 (1.000-1.030) Urine Protein 100 mg/dL (NEG-TRACE) Urine Glucose (UA) Negative mg/dL (NEG) Urine Ketones (Stick) Negative mg/dL (NEG) Urine Blood Negative (NEG) Urine Nitrite Negative (NEG) Urine Bilirubin Negative (NEG) Urine Urobilinogen Dipstick 1.0 mg/dL (0.2 mg/dL) Urine Leukocyte Esterase Small (NEG) Urine RBC 1-2 /HPF (0-2) Urine WBC 11-20 /HPF (0-4) Urine Squamous Epithelial Cells Occ /LPF Urine Bacteria Few /HPF (0-FEW) Urine Hyaline Casts Few /HPF Urine Sperm Present /HPF White Blood Count 10.9 x10^3/uL (4.0-11.0) Red Blood Count 4.98 x10^6/uL (4.30-5.70) Hemoglobin 15.5 g/dL (13.0-17.5) Hematocrit 45.7 % (39.0-53.0) Mean Corpuscular Volume 92 fL (79-100) Mean Corpuscular Hemoglobin 31 pg (25-35) Mean Corpuscular Hemoglobin Concent 34 g/dL (31-37) Red Cell Distribution Width 13.9 % (11.5-14.5) Platelet Count 208 x10^3/uL (140-400) Neutrophils (%) (Auto) 71 % (31-73) Lymphocytes (%) (Auto) 18 % (24-48) L Monocytes (%) (Auto) 7 % (0-9) Eosinophils (%) (Auto) 4 % (0-3) H Basophils (%) (Auto) 1 % (0-3) Neutrophils # (Auto) 7.7 x10^3/uL (1.8-7.7) Lymphocytes # (Auto) 1.9 x10^3/uL (1.0-4.8) Monocytes # (Auto) 0.8 x10^3/uL (0.0-1.1) Eosinophils # (Auto) 0.4 x10^3/uL (0.0-0.7) Basophils # (Auto) 0.1 x10^3/uL (0.0-0.2) Prothrombin Time 13.4 SEC (11.7-14.0) Prothrombin Time INR 1.1 (0.8-1.1) Activated Partial Thromboplast Time 27 SEC (24-38) Laboratory Tests 08/21/20 10:50 Laboratory Tests 08/21/20 10:40 Vital Signs: Vital Signs Date Time Temp Pulse Resp B/P (MAP) Pulse Ox O2 Delivery O2 Flow Rate FiO2 08/21/20 09:05 99.3 104 42 165/95 (118) 90 Room Air 99.3 EKG: EKG: Patient EKG was done at 855, heart rate of 106 bpm, no ST segment elevation. Radiology/Procedures: Radiology/Procedures: [][facility] [address] [facility] [place] [address] IMAGING REPORT Signed PATIENT: JAVIER MURGUIA ACCOUNT: [id number] : 1970 LOCATION: ER AGE: 50 SEX: M EXAM STATUS: PRE ER ORD. PHYSICIAN: ELIO SALES DO REASON: CHEST PAIN, FEVER, SHORT OF BREATH PROCEDURE: PORTABLE CHEST 1V PORTABLE CHEST 1V History: Chest pain, fever, shortness of breath Comparison: June 10, 2017 Findings: Single view of the chest is submitted. Pericardial cardiac silhouette is again enlarged. There is some subtle airspace opacity of the bilateral lung bases. There is no dependent pleural fluid or pneumothorax. Impression: 1. There is mild bibasilar airspace opacity which may be due to infiltrates, edema, or atelectasis. 2. There is again enlargement of the pericardial cardiac silhouette. Electronically signed by: Kwadwo Chaves MD (08/21/2020 9:48 AM) [id number] DICTATED and SIGNED BY: KWADWO CHAVES MD DATE: 08/21/20 0948 Course & Med Decision Making: Course & Med Decision Making Pertinent Labs and Imaging studies reviewed. (See chart for details) [] Dragon Disclaimer: Dragon Disclaimer: This electronic medical record was generated, in whole or in part, using a voice recognition dictation system. Departure Departure Impression: Primary Impression: Chest pain Additional Impression: Dental abscess Disposition: ADMITTED INPATIENT Admitting Physician: KYRA (Dr. Bryant) Condition: STABLE Referrals: NO PCP (PCP) Justicifation of Admission Dx: Justifications for Admission: Justification of Admission Dx: Yes (CHEST PAIN, DENTAL INFECTION) ELIO SALES DO Aug 21, 2020 12:13
[2020-08-21] MEDS ORDERED: NITROGLYCERIN SUBLINGUAL 0.4 MG BOTTLE OF 25. SL PRN (13:15)
[2020-08-21] MEDS ORDERED: SENNOSIDES 8.6 MG TABLET PO PRN (13:15)
[2020-08-21] MEDS ORDERED: POTASSIUM CHLORIDE 10MEQ 100 ML IV SCH (13:15)
[2020-08-21] MEDS ORDERED: ONDANSETRON PF 4 MG/2 ML VIAL. IVP PRN (13:15)
[2020-08-21] MEDS ORDERED: LORazepam 0.5 MG TABLET PO PRN (13:15)
[2020-08-21] MEDS ORDERED: POTASSIUM CHLORIDE 10MEQ 100 ML IV PRN (13:15)
[2020-08-21] MEDS ORDERED: DOCUSATE SODIUM 100 MG CAPSULE. PO PRN (13:15)
[2020-08-21] MEDS ORDERED: MAGNESIUM SULFATE 2GM 50 ML IV SCH (13:15)
[2020-08-21] MEDS ORDERED: POTASSIUM CHLORIDE 20 MEQ TABLET.ER. PO PRN (13:15)
[2020-08-21] MEDS ORDERED: DEXTROSE 50% 25 GM / 50ML DISP.SYRIN. IV PRN (13:15)
[2020-08-21] MEDS ORDERED: ELECTROLYTE (NON-ICU) PROTOCOL MC PRN (14:15)
--- NOTE | 2020-08-21 14:23 | RAD ---
Maxillofacial CT without contrast HISTORY: Dental abscess left side. FINDINGS: Absence of contrast decreases sensitivity to detect small rim-enhancing abscesses separate from phlegmonous edema and limits detection of small masses. There is an unerupted left posterior mandible molar, there is mild well-defined bone lucency about the posterior crown which could be a chronic infectious or inflammatory process or secondarily could be a small dentigerous cyst formation given the unerupted tooth, no erosions about the roots of ththis tooth evident. Several teeth are missing. There is mild periapical lucency surrounding the remaining right mandible first molar as well as the adjacent second premolar along with a dental ale of the right mandible second premolar, the periapical lucencies about these teeth could be due to early periapical abscesses. No facial bone fracture. Maxilla, mandible and orbits are intact. No soft tissue edema of the face or orbits. No fluid of the paranasal sinuses. Paranasal sinuses are well-aerated. There is a small cyst or polyp within the right sphenoid sinus. IMPRESSION: 1. Dental disease as described above. 2. Facial bones intact. No fracture. Exposure: One or more of the following individualized dose reduction techniques were utilized for this examination: 1. Automated exposure control 2. Adjustment of the mA and/or kV according to patient size 3. Use of iterative reconstruction technique Electronically signed by: Donavon Mcneil MD (08/21/2020 2:20 PM) [facility]
[2020-08-21] MEDS ORDERED: PANTOPRAZOLE 40 MG TABLET.DR. PO SCH (14:30)
--- NOTE | 2020-08-21 16:16 | PDOC1 ---
History and Physical Date of Service: DOS: DATE: 08/21/20 TIME: 16:00 Chief Complaint: Chief Complain: Left groin pain and chest discomfort History of Present Illness: HPI: 50 year old male who was brought here for evaluation due to chest pain, heaviness and pressure in nature off and on for a month. Patient had extensive coronary disease, EF of 10%, history of drug abuse. 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 Patient also complained of right lower dental pain and swelling that he is having this morning. Patient has history of chronic left inguinal hernia that has been bothering him, he said he is in the process of getting a general surgeon to evaluate his inguinal hernia. Patient denies any nausea vomiting. Patient denies any cough or fever.50Y\O MALE ARRIVES AMBULATORY WITH C/O FATIGUE, SOA AND CHEST HEAVINESS FOR 1 MONTH NOW. PT REPORTS HX OF MULTIPLE MIs, EF 10%. GCS15 O2 90% ON RA. FORMER SMOKER. PT STATES HE CAME IN TODAY D/T HERNIA PAIN AND NO BM X4 DAYS. Past Medical/Surgical History: PMH/PSH: Past Medical History: High Cholesterol, Heart Disease, Hypertension, [place], HERNIA, EF 10% Past Surgical History: No Surgical History Allergies: Allergies: Coded Allergies: No Known Drug Allergies (Unverified , 05/11/17) Family History: Family History: Reviewed and none reported Social History: Social History: Smoking Status: Former Smoker, quit 3 to 4 years ago Alcohol Use: None Drug Use: History of IV drug abuse. Marijuana Current Medications: Current Medications Current Medications Ampicillin Sodium/ Sulbactam Sodium 3 gm/Sodium Chloride 100 ml @ 200 mls/hr 1X ONCE IV Last administered on 08/21/20at 12:07; Start 08/21/20 at 12:00; Stop 08/21/20 at 12:29; Status DC Nitroglycerin (Nitrostat) 0.4 mg PRN Q5MIN PRN SL CHEST PAIN; Start 08/21/20 at 13:15 Sennosides (Senna) 17.2 mg PRN BID PRN PO CONSTIPATION; Start 08/21/20 at 13:15 Docusate Sodium (Colace) 100 mg PRN DAILY PRN PO HARD STOOLS; Start 08/21/20 at 13:15 Thiamine HCl 100 mg/Dextrose 51 ml @ 102 mls/hr DAILY IV ; Start 08/22/20 at 09:00; Status UNV Ondansetron HCl (Zofran) 4 mg PRN Q6HRS PRN IVP NAUSEA/VOMITING; Start 08/21/20 at 13:15 Potassium Chloride (Klor-Con) 40 meq 1X PRN PO PER PROTOCOL; Start 08/21/20 at 13:15; Status UNV Magnesium Oxide (Magnesium Oxide) 400 mg BID PO ; Start 08/21/20 at 21:00; Stop 08/23/20 at 09:01; Status UNV Potassium Chloride/Water 100 ml @ 100 mls/hr Q1H IV ; Start 08/21/20 at 13:15; Stop 08/21/20 at 17:14; Status UNV Magnesium Sulfate 50 ml @ 25 mls/hr Q24H IV ; Start 08/21/20 at 13:15; Stop 08/23/20 at 15:14; Status UNV Potassium Chloride/Water 100 ml @ 100 mls/hr Q1H PRN IV low k; Start 08/21/20 at 13:15; Status UNV Aspirin (Ecotrin) 81 mg DAILYWBKFT PO ; Start 08/22/20 at 08:00 Dextrose (Dextrose 50%-Water Syringe) 12.5 gm PRN Q15MIN PRN IV SEE COMMENTS; Start 08/21/20 at 13:15 Lorazepam (Ativan) 0.5 mg PRN Q4HRS PRN PO ANXIETY / AGITATION; Start 08/21/20 at 13:15 Heparin Sodium (Porcine) (Heparin Sodium) 5,000 unit Q12HR SQ ; Start 08/21/20 at 21:00 Pantoprazole Sodium (Protonix) 40 mg DAILYAC PO Last administered on 08/21/20at 15:13; Start 08/21/20 at 14:30 Info (Non-Icu Electrolyte Protocol) 1 ea CONT PRN PRN MC SEE COMMENTS; Start at 14:15 Thiamine Mononitrate (Vitamin B-1) 100 mg DAILY PO ; Start 08/22/20 at 09:00 Active Scripts Active Coreg (Carvedilol) 25 Mg Tablet 1 Tab PO BID Lipitor (Atorvastatin Calcium) 40 Mg Tablet 1 Tab PO QHS Hydrochlorothiazide Capsule (Hydrochlorothiazide) 12.5 Mg Capsule 2 Cap PO DAILY Lisinopril 20 Mg Tablet 1 Tab PO DAILY Plavix (Clopidogrel Bisulfate) 75 Mg Tablet 75 Tab PO DAILY Aspirin 325 Mg Tablet 1 Tab PO DAILY ROS: Review of Systems Review of System REVIEW OF SYSTEMS: GENERAL: Denies weakness SKIN: No bruising, hair changes or rashes. EYES: No blurred, double or loss of vision. NOSE AND THROAT: No history of nosebleeds, hoarseness or sore throat. HEART: No history of palpitations, chest pain or shortness of breath on exertion. LUNGS: Denies cough, hemoptysis, wheezing or shortness of breath. GASTROINTESTINAL: Denies changes in appetite, nausea, vomiting, diarrhea or constipation. GENITOURINARY: No history of frequency, urgency, hesitancy or nocturia. NEUROLOGIC: Denies history of numbness, tingling, or tremor. PSYCHIATRIC: No history of panic, anxiety or depression. ENDOCRINE: No history of heat or cold intolerance, polyuria or polydipsia. EXTREMITIES: Denies joint pain, pain on walking or stiffness. Physical Exam: Vital Signs: Vital Signs Date Time Temp Pulse Resp B/P (MAP) Pulse Ox O2 Delivery O2 Flow Rate FiO2 08/21/20 09:05 99.3 104 42 165/95 (118) 90 Room Air 99.3 Physcial Exam: GEN: No apparent distress. Alert and oriented HEENT: Normal cephalic, atraumatic, external auditory canals are patent. Right molar tooth decay. EYES: Extraocular muscles are intact, pupil are equally round and reactive to light and accommodation MUSCULOSKELETAL: Well developed , well nourished, good range of motion ENDOCRINE: No thyromegaly was palpated LYMPHATICS: No cervical chain or axillary nodes were noted. Tender mandibular region. HEMATOPOIETIC: No bruising NECK: Supple, no JVD, no thyromegaly was noted LUNGS: Clear to auscultation in all lung smith without rhonchi or wheezing HEART: RRR, S!, S2 present. Peripheral pulses intact, no obvious murmurs noted ABDOMEN: A reducible indirect left inguinal hernia. Soft, nontender. Positive bowel sounds, no organomegaly, normal bowel sounds EXTREMITIES: Without clubbing, cyanosis, or edema. Pedal pulses intact. Negative Homans sign NEUROLOGIC: Normal speech and tone. A&O x 3, moves all extremities, no obvious focal deficits PSYCHIATRIC: Normal affect, normal mood. Stable SKIN: No ulcerations or rashes, good skin turgor, no jaundice VASCULAR: Good capillary refill, neurovascular bundle appears to be intact Labs: Labs: Laboratory Tests Test 08/21/20 10:40 08/21/20 10:45 08/21/20 10:50 08/21/20 11:35 Sodium Level 136 mmol/L (136-145) Potassium Level 4.1 mmol/L (3.5-5.1) Chloride Level 101 mmol/L (98-107) Carbon Dioxide Level 30 mmol/L (21-32) Anion Gap 5 (6-14) Blood Urea Nitrogen 15 mg/dL (8-26) Creatinine 1.3 mg/dL (0.7-1.3) Estimated GFR (Cockcroft-Gault) 58.9 BUN/Creatinine Ratio 12 (6-20) Glucose Level 166 mg/dL (70-99) Calcium Level 8.5 mg/dL (8.5-10.1) Magnesium Level 2.2 mg/dL (1.8-2.4) Total Bilirubin 0.4 mg/dL (0.2-1.0) Aspartate Amino Transf (AST/SGOT) 18 U/L (15-37) Alanine Aminotransferase (ALT/SGPT) 26 U/L (16-63) Alkaline Phosphatase 63 U/L (46-116) Troponin I Quantitative 0.099 ng/mL (0.000-0.055) HM-Mgc-C-Type Natriuretic Peptide 5672 pg/mL (0-124) Total Protein 6.5 g/dL (6.4-8.2) Albumin 3.0 g/dL (3.4-5.0) Albumin/Globulin Ratio 0.9 (1.0-1.7) Lipase 90 U/L (73-393) Urine Collection Type Void Urine Color Yellow Urine Clarity Clear Urine pH 6.0 (<5.0-8.0) Urine Specific [place] 1.015 (1.000-1.030) Urine Protein 100 mg/dL (NEG-TRACE) Urine Glucose (UA) Negative mg/dL (NEG) Urine Ketones (Stick) Negative mg/dL (NEG) Urine Blood Negative (NEG) Urine Nitrite Negative (NEG) Urine Bilirubin Negative (NEG) Urine Urobilinogen Dipstick 1.0 mg/dL (0.2 mg/dL) Urine Leukocyte Esterase Small (NEG) Urine RBC 1-2 /HPF (0-2) Urine WBC 11-20 /HPF (0-4) Urine Squamous Epithelial Cells Occ /LPF Urine Bacteria Few /HPF (0-FEW) Urine Hyaline Casts Few /HPF Urine Sperm Present /HPF White Blood Count 10.9 x10^3/uL (4.0-11.0) Red Blood Count 4.98 x10^6/uL (4.30-5.70) Hemoglobin 15.5 g/dL (13.0-17.5) Hematocrit 45.7 % (39.0-53.0) Mean Corpuscular Volume 92 fL (79-100) Mean Corpuscular Hemoglobin 31 pg (25-35) Mean Corpuscular Hemoglobin Concent 34 g/dL (31-37) Red Cell Distribution Width 13.9 % (11.5-14.5) Platelet Count 208 x10^3/uL (140-400) Neutrophils (%) (Auto) 71 % (31-73) Lymphocytes (%) (Auto) 18 % (24-48) Monocytes (%) (Auto) 7 % (0-9) Eosinophils (%) (Auto) 4 % (0-3) Basophils (%) (Auto) 1 % (0-3) Neutrophils # (Auto) 7.7 x10^3/uL (1.8-7.7) Lymphocytes # (Auto) 1.9 x10^3/uL (1.0-4.8) Monocytes # (Auto) 0.8 x10^3/uL (0.0-1.1) Eosinophils # (Auto) 0.4 x10^3/uL (0.0-0.7) Basophils # (Auto) 0.1 x10^3/uL (0.0-0.2) Prothrombin Time 13.4 SEC (11.7-14.0) Prothromb Time International Ratio 1.1 (0.8-1.1) Activated Partial Thromboplast Time 27 SEC (24-38) Test 08/21/20 12:30 08/21/20 15:15 Troponin I Quantitative 0.108 ng/mL (0.000-0.055) 0.092 ng/mL (0.000-0.055) Laboratory Tests Test 08/21/20 10:40 08/21/20 10:45 08/21/20 10:50 08/21/20 11:35 Sodium Level 136 mmol/L (136-145) Potassium Level 4.1 mmol/L (3.5-5.1) Chloride Level 101 mmol/L (98-107) Carbon Dioxide Level 30 mmol/L (21-32) Anion Gap 5 (6-14) Blood Urea Nitrogen 15 mg/dL (8-26) Creatinine 1.3 mg/dL (0.7-1.3) Estimated GFR (Cockcroft-Gault) 58.9 BUN/Creatinine Ratio 12 (6-20) Glucose Level 166 mg/dL (70-99) Calcium Level 8.5 mg/dL (8.5-10.1) Magnesium Level 2.2 mg/dL (1.8-2.4) Total Bilirubin 0.4 mg/dL (0.2-1.0) Aspartate Amino Transf (AST/SGOT) 18 U/L (15-37) Alanine Aminotransferase (ALT/SGPT) 26 U/L (16-63) Alkaline Phosphatase 63 U/L (46-116) Troponin I Quantitative 0.099 ng/mL (0.000-0.055) JC-Nna-D-Type Natriuretic Peptide 5672 pg/mL (0-124) Total Protein 6.5 g/dL (6.4-8.2) Albumin 3.0 g/dL (3.4-5.0) Albumin/Globulin Ratio 0.9 (1.0-1.7) Lipase 90 U/L (73-393) Urine Collection Type Void Urine Color Yellow Urine Clarity Clear Urine pH 6.0 (<5.0-8.0) Urine Specific [place] 1.015 (1.000-1.030) Urine Protein 100 mg/dL (NEG-TRACE) Urine Glucose (UA) Negative mg/dL (NEG) Urine Ketones (Stick) Negative mg/dL (NEG) Urine Blood Negative (NEG) Urine Nitrite Negative (NEG) Urine Bilirubin Negative (NEG) Urine Urobilinogen Dipstick 1.0 mg/dL (0.2 mg/dL) Urine Leukocyte Esterase Small (NEG) Urine RBC 1-2 /HPF (0-2) Urine WBC 11-20 /HPF (0-4) Urine Squamous Epithelial Cells Occ /LPF Urine Bacteria Few /HPF (0-FEW) Urine Hyaline Casts Few /HPF Urine Sperm Present /HPF White Blood Count 10.9 x10^3/uL (4.0-11.0) Red Blood Count 4.98 x10^6/uL (4.30-5.70) Hemoglobin 15.5 g/dL (13.0-17.5) Hematocrit 45.7 % (39.0-53.0) Mean Corpuscular Volume 92 fL (79-100) Mean Corpuscular Hemoglobin 31 pg (25-35) Mean Corpuscular Hemoglobin Concent 34 g/dL (31-37) Red Cell Distribution Width 13.9 % (11.5-14.5) Platelet Count 208 x10^3/uL (140-400) Neutrophils (%) (Auto) 71 % (31-73) Lymphocytes (%) (Auto) 18 % (24-48) Monocytes (%) (Auto) 7 % (0-9) Eosinophils (%) (Auto) 4 % (0-3) Basophils (%) (Auto) 1 % (0-3) Neutrophils # (Auto) 7.7 x10^3/uL (1.8-7.7) Lymphocytes # (Auto) 1.9 x10^3/uL (1.0-4.8) Monocytes # (Auto) 0.8 x10^3/uL (0.0-1.1) Eosinophils # (Auto) 0.4 x10^3/uL (0.0-0.7) Basophils # (Auto) 0.1 x10^3/uL (0.0-0.2) Prothrombin Time 13.4 SEC (11.7-14.0) Prothromb Time International Ratio 1.1 (0.8-1.1) Activated Partial Thromboplast Time 27 SEC (24-38) Test 08/21/20 12:30 08/21/20 15:15 Troponin I Quantitative 0.108 ng/mL (0.000-0.055) 0.092 ng/mL (0.000-0.055) Images: Images CXR Impression: 1. There is mild bibasilar airspace opacity which may be due to infiltrates, edema, or atelectasis. 2. There is again enlargement of the pericardial cardiac silhouette. CT MAx/facial FINDINGS: Absence of contrast decreases sensitivity to detect small rim-enhancing abscesses separate from phlegmonous edema and limits detection of small masses. There is an unerupted left posterior mandible molar, there is mild well-defined bone lucency about the posterior crown which could be a chronic infectious or inflammatory process or secondarily could be a small dentigerous cyst formation given the unerupted tooth, no erosions about the roots of ththis tooth evident. Several teeth are missing. There is mild periapical lucency surrounding the remaining right mandible first molar as well as the adjacent second premolar along with a dental ale of the right mandible second premolar, the periapical lucencies about these teeth could be due to early periapical abscesses. No facial bone fracture. Maxilla, mandible and orbits are intact. No soft tissue edema of the face or orbits. No fluid of the paranasal sinuses. Paranasal sinuses are well-aerated. There is a small cyst or polyp within the right sphenoid sinus. IMPRESSION: 1. Dental disease as described above. 2. Facial bones intact. No fracture. Assessment/Plan Assessment/Plan Chest pain concerning for unstable angina/NSTEMI Left indirect inguinal hernia Concern for molar periapical abscesses History of systolic CHF with EF 20% Troponinemia History of polysubstance abuse Admit for further management Pending cardiology evaluation Pending surgery evaluation for inguinal hernia Pending dental evaluation for molar abscesses Continue aspirin Continue nitroglycerin as needed for pain Continue beta-francis if blood pressures allow Continue high intensity statins IV morphine as needed Consider Lovenox Maintain O2 sats between 88 to 95% Trend troponins Repeat EKG in the a.m. Continue telemetry monitoring Monitor for electrolyte abnormalities Avoid NSAIDs Pending echocardiogram Pending UDS Heparin for DVT prophylaxis Protonix GI prophylaxis ADA diet Full code Discussed with RN and SW Disposition pending cardiology and dental evaluation Surrogate decision maker is undesignated Justifications for Admission Chest Pain Indications Serious Diagnosis?: Yes Justification for admission: Chest pain may be indicative of potentially serious diagnosis/diagnoses Please state condition(s) which will require inpatient level of care for further evaluation and management. Chest pain indicative of: Other: Please Specify Other Chest Pain Conditions: CHF, dental abscess Other Justification NICKI HARKINS MD Aug 21, 2020 16:16
[2020-08-21 16:17] LABS: BARBITURATES NEG (NEG); BENZODIAZEPINES NEG (NEG); CANNABINOIDS POS (NEG); COCAINE NEG (NEG); METHADONE NEG (NEG); OPIATES POS (NEG); PHENCYCLIDINE NEG (NEG)
[2020-08-21 16:18] LABS: AMPHETAMINE/METHAMPHETAMINE POS (NEG)
[2020-08-21] MEDS ORDERED: MORPHINE SULFATE 2 MG/ML VIAL. IV PRN (17:15)
[2020-08-21] MEDS ORDERED: ACETAMINOPHEN 325 MG TABLET. PO PRN (17:15)
[2020-08-21] MEDS ORDERED: CARVEDILOL 12.5 MG TABLET. PO SCH (18:00)
[2020-08-21 18:13] VITALS: BP 207/147
[2020-08-21] MEDS ORDERED: oxyCODONE/APAP 5/325 1 TAB TABLET PO PRN (18:45)
[2020-08-21] MEDS ORDERED: ATORVASTATIN CALCIUM 40 MG TABLET. PO SCH (21:00)
[2020-08-21] MEDS ORDERED: MAGNESIUM OXIDE 400 MG TABLET PO SCH (21:00)
[2020-08-21] MEDS ORDERED: HEPARIN for SUB-Q USE 5,000 UNIT/ML VIAL. SQ SCH (21:00)
[2020-08-22] MEDS ORDERED: ASPIRIN ENTERIC COATED 81 MG TABLET.DR. PO SCH (08:00)
[2020-08-22] MEDS ORDERED: THIAMINE INJ 100 MG in IV DEXTROSE 5% 50 ML IV SCH (09:00)
[2020-08-22] MEDS ORDERED: LISINOPRIL 20 MG TABLET PO SCH (09:00)
[2020-08-22] MEDS ORDERED: THIAMINE 100 MG TABLET. PO SCH (09:00)
== END 2020-08-21 18:18 | disposition left against medical advice (07) ==
LOC: ER 08:48 → UNDOADMIN 14:40 → ED HOLD 14:40 → 2 NORTH 18:18 → ED HOLD 18:50 → 2 NORTH 18:50
DX: R07.89 Other chest pain (principal); K04.7 Periapical abscess without sinus; E78.00 Pure hypercholesterolemia, unspecified; I11.9 Hypertensive heart disease without heart failure; I25.2 Old myocardial infarction
CPT/HCPCS: 36415; 70486; 71045; 80053; 80307; 81001; 83690; 83735; 83880; 84484; 85025; 85610; 85730; 87086; 93005; 96365; 99285; J0295